=== PATIENT | male | born 1960 | race Caucasian/White ===

== ENCOUNTER → 2017-03-25 | Outpatient (CLI) | payer BC ==
--- NOTE | 2017-03-25 10:18 | DIAGNOSTIC IMAGING REPORT ---
RIGHT ANKLE MIN 3 VIEWS ROUTINE CLINICAL HISTORY: M25.50, arthralgia. COMPARISON: None. DISCUSSION: No acute fractures are visualized. There is evidence for an old internally fixated distal fibular fracture. There are corticated ossicles adjacent to both the medial and lateral malleolar. These are felt to be old and related to old trauma. There is Achilles insertional spurring. No acute fractures are visualized. IMPRESSION: Old posttraumatic and postsurgical change. No acute fractures. Electronically signed by: Douglas Kirk M.D. 03/25/2017 10:16 AM Dictated Date/Time: 03/25/2017 10:15 AM
--- NOTE | 2017-03-25 10:19 | DIAGNOSTIC IMAGING REPORT ---
LEFT HAND MIN 3 VIEWS ROUTINE CLINICAL HISTORY: M25.50 pain COMPARISON: None. DISCUSSION: The bones and joint spaces appear intact. There is no evidence of fracture, dislocation or bony disease. There is no evidence for soft tissue swelling. IMPRESSION: Negative study. Electronically signed by: Elvis Gunter M.D. 03/25/2017 10:18 AM Dictated Date/Time: 03/25/2017 10:17 AM
--- NOTE | 2017-03-25 10:20 | DIAGNOSTIC IMAGING REPORT ---
KNEE 3 VIEWS CLINICAL HISTORY: M25.50 pain COMPARISON: None. DISCUSSION: Mild degenerative changes of the articular surfaces of the medial and patellofemoral joint compartments. Minimal reactive osteophytic change from the tibial spines. No abnormal soft tissue calcifications. There is no evidence for soft tissue swelling. IMPRESSION: Mild degenerative changes of the articular surface of the medial and patellofemoral joint compartments. Electronically signed by: Elvis Gunter M.D. 03/25/2017 10:19 AM Dictated Date/Time: 03/25/2017 10:18 AM
--- NOTE | 2017-03-25 10:21 | DIAGNOSTIC IMAGING REPORT ---
KNEE 3 VIEWS CLINICAL HISTORY: M25.50 RIGHT KNEE PAIN COMPARISON: 03/25/2017 DISCUSSION: No acute fractures are visualized. There is mild spurring at the level the lateral tibial spine. There is minor dorsal patellar spurring. There are no erosive or destructive changes. IMPRESSION: Mild degenerative change. No acute fractures. No evidence of erosive disease. Electronically signed by: Douglas Kirk M.D. 03/25/2017 10:20 AM Dictated Date/Time: 03/25/2017 10:19 AM
--- NOTE | 2017-03-25 10:37 | DIAGNOSTIC IMAGING REPORT ---
RIGHT HAND MIN 3 VIEWS ROUTINE CLINICAL HISTORY: Right hand pain COMPARISON: None. DISCUSSION: The bony mineralization appears normal. No fractures or dislocations are visualized. There are no erosive or destructive changes. There are minimal osteoarthritic changes. IMPRESSION: Minor osteoarthritis. No acute fractures identified. Electronically signed by: Douglas Kirk M.D. 03/25/2017 10:36 AM Dictated Date/Time: 03/25/2017 10:23 AM
[2017-03-25 10:40] LABS: BASO % 0.4 %; BASO ABS # 0.02 K/uL (0-0.2); COMPLETE YES; EOS % 2.9 %; HEMATOCRIT 40.6 % (42-52); IG% 0.2 %; LYMPH % 21.6 %; MEAN CELL VOLUME 88.5 fL (80-100); MEAN CORPUSCULAR HEMOGLOBIN 29.6 pg (25-34); MEAN CORPUSCULAR HGB CONC 33.5 g/dl (32-36); MEAN PLATELET VOLUME 11.1 fL (7.4-10.4); MONO % 6.9 %; PLATELET COUNT 199 K/uL (130-400); RED BLOOD COUNT 4.59 M/uL (4.7-6.1)
[2017-03-25 10:48] LABS: URINE APPEARANCE CLEAR (CLEAR); URINE BILIRUBIN NEG (NEG); URINE COLOR YELLOW; URINE EPITHELIAL CELL AUTO >30 /lpf (0-5); URINE NITRITE NEG (NEG); UROBILINOGEN NEG (NEG)
[2017-03-25 10:49] LABS: MANUAL MICROSCOPIC REQUIRED? NO; REVIEW REQ? NO
[2017-03-25 10:55] LABS: BLOOD UREA NITROGEN 23 mg/dl (7-18); BUN/CREATININE RATIO 24.5 (10-20); CALCIUM 8.6 mg/dl (8.5-10.1); CARBON DIOXIDE 28 mmol/L (21-32); CHLORIDE 106 mmol/L (98-107); CREATININE 0.96 mg/dl (0.60-1.40); GLUCOSE 89 mg/dl (70-99); POTASSIUM 4.4 mmol/L (3.5-5.1); SODIUM 139 mmol/L (136-145)
[2017-03-25 10:56] LABS: RHEUMATOID FACTOR < 10.0 U/mL (0-15)
[2017-03-30 05:19] LABS: ANTI-CENTROMERE AB <1.0 NEG AI (<1.0 NEG); ANTI-SS-A <1.0 NEG AI (<1.0 NEG); ANTI-SS-B <1.0 NEG AI (<1.0 NEG); DNA ds CRITHIDIA NEGATIVE (NEGATIVE); Sm Antibody <1.0 NEG AI (<1.0 NEG)
== END | disposition home or self-care (01) ==
LOC: C.RAD1850 09:22
PROVIDERS: ATTEND Internal Medicine Rheumatology
DX: M25.50 Pain in unspecified joint (principal); L93.2 Other local lupus erythematosus

== ENCOUNTER → 2017-04-05 | Outpatient (CLI) | payer BC ==
--- NOTE | 2017-04-05 12:11 | DIAGNOSTIC IMAGING REPORT ---
BONE SCAN WHOLE BODY CLINICAL HISTORY: M25.50 Arthralgia of multiple sites COMPARISON STUDY: Conventional x-ray of the knees hand and right ankle dated 03/25/2017 FINDINGS: The patient was injected with 27.1 mCi of technetium 99m MDP. Three-hour delayed whole body images were acquired. The bladder is distended obscuring portions of the pelvis. There is minimal increased activity at the level the proximal left fibula. This likely is secondary to mild degenerative change of the proximal synchondrosis. Skeletal uptake is otherwise normal for age. IMPRESSION: Minimal increased activity at the level the proximal left fibula. Skeletal uptake is otherwise essentially normal for age Electronically signed by: Douglas Kirk M.D. 04/05/2017 12:09 PM Dictated Date/Time: 04/05/2017 12:07 PM
== END | disposition home or self-care (01) ==
LOC: C.NUCL 07:47
PROVIDERS: ATTEND Internal Medicine Rheumatology
DX: M25.50 Pain in unspecified joint (principal)

== ENCOUNTER → 2017-09-19 | Outpatient (CLI) | payer BC ==
[2017-09-19 17:32] LABS: BASO % 0.3 %; BASO ABS # 0.02 K/uL (0-0.2); COMPLETE YES; EOS % 1.6 %; HEMATOCRIT 40.1 % (42-52); IG% 0.3 %; LYMPH % 17.2 %; LYMPH ABS # 1.07 K/uL (1.2-3.4); MEAN CELL VOLUME 89.3 fL (80-100); MEAN CORPUSCULAR HEMOGLOBIN 30.1 pg (25-34); MEAN CORPUSCULAR HGB CONC 33.7 g/dl (32-36); MEAN PLATELET VOLUME 11.1 fL (7.4-10.4); MONO % 7.9 %; NEUT % 72.7 %; PLATELET COUNT 208 K/uL (130-400); RED BLOOD COUNT 4.49 M/uL (4.7-6.1); WHITE BLOOD COUNT 6.22 K/uL (4.8-10.8)
[2017-09-19 18:11] LABS: ALT/SGPT 39 U/L (12-78); BLOOD UREA NITROGEN 29 mg/dl (7-18); BUN/CREATININE RATIO 25.8 (10-20); CALCIUM 8.7 mg/dl (8.5-10.1); CARBON DIOXIDE 30 mmol/L (21-32); CHLORIDE 103 mmol/L (98-107); CREATININE 1.11 mg/dl (0.60-1.40); GLUCOSE 85 mg/dl (70-99); POTASSIUM 3.9 mmol/L (3.5-5.1); SODIUM 139 mmol/L (136-145)
[2017-09-19 18:13] LABS: ALB/GLOB RATIO 1.2 (0.9-2); ALKALINE PHOSPHATASE 54 U/L (45-117); AST/SGOT 25 U/L (15-37)
== END | disposition home or self-care (01) ==
LOC: C.LABBFT 13:57
PROVIDERS: ATTEND Physician Assistant
DX: L93.2 Other local lupus erythematosus (principal)

== ENCOUNTER 2022-06-18 06:21 | Observation (INO) ==
--- NOTE | 2022-02-21 11:16 | PAT Medication Instructions ---
Medication Instructions Date of Service February 21, 2022 Home Medications Medication Instructions Recorded fluocinonide 0.05 % topical 1 applic TOP BID #60 ml 09/20/21 solution propranolol 60 mg capsule,24 See Rx Instructions .ROUTE 11/17/21 hr,extended release .COMPLEX #30 cap hydroxychloroquine 200 mg tablet 400 mg PO DAILY #60 tab 11/30/21 (Plaquenil) finasteride 5 mg tablet (Proscar) 5 mg PO QAM tamsulosin 0.4 mg capsule (Flomax) 0.4 mg PO QAM acetaminophen 500 mg tablet 500 mg PO QID PRN fluocinonide 0.05 % topical solution 1 applic TOP BID propranolol 60 mg capsule,24 hr,extended release See Rx Instructions .ROUTE .COMPLEX hydroxychloroquine 200 mg tablet (Plaquenil) 400 mg PO DAILY mometasone 0.1 % topical cream 1 applic TOPICAL DAILY PRN ASK your prescriber and surgeon hydroxychloroquine 200 mg tablet (Plaquenil) 400 mg PO DAILY STOP taking 24 hours before surgery fluocinonide 0.05 % topical solution 1 applic TOP BID mometasone 0.1 % topical cream 1 applic TOPICAL DAILY PRN Take morning of surgery With a small sip of water, OTHERWISE NOTHING TO EAT OR DRINK AFTER MIDNIGHT: finasteride 5 mg tablet (Proscar) 5 mg PO QAM tamsulosin 0.4 mg capsule (Flomax) 0.4 mg PO QAM acetaminophen 500 mg tablet 500 mg PO QID PRN (okay to take up to 4 hours prior to surgery if needed) propranolol 60 mg capsule,24 hr,extended release See Rx Instructions .ROUTE .COMPLEX Take evening before surgery acetaminophen 500 mg tablet 500 mg PO QID PRN (if needed) Other Notes If you have any questions please call us at [phone] or [phone] or [phone] or [phone]
--- NOTE | 2022-02-22 15:03 | Anesthesiology Consultation ---
Date of Service February 22, 2022 Assessment & Plan (1) Encounter for pre-operative examination: Chart Review Chart Review: Acceptable Risk for Surgery (pending cardio preop evaluation 03/09 and preop Covid testing results ) and Patient seen in Pre Admission Testing -Will refer patient to cardio for chest pressure x 1 month - scheduled 03/09/22 with [facility] at 1045am. Pt aware Per PAT appt on 02/21/22, patient denies any recent travel or large group activities. No known Covid positive exposures or Covid related symptoms. No known Covid infection in the past 90 days. Pt is vaccinated for Covid. Preop Covid testing scheduled 04/04/22= will await results. Educated on importance of self quarantining, social distancing and wearing mask in public for the patient one week prior to surgery and after Covid testing done Teaching & Discussion Pre-Anesthesia Teaching/Discussion Notes: Instructed NPO after midnight before surgery,except medications with 15 cc of water. Medication instructions provided according to the PAT guidelines. History Surgery Operation Date: 04/06/22 08:50 Proposed Procedures p Right Total Knee Arthroplasty - Ranjit Kasper MD Height/Weight Height: 5 ft 11 in Weight: 119.6 kg Allergies Allergy/AdvReac Type Severity Reaction Status Date / Time No Known Allergies Allergy Verified 02/21/22 09:52 Medications Home Medications Medication Instructions Recorded Confirmed Last Taken finasteride 5 mg tablet (Proscar) 5 mg PO QAM 08/09/18 02/21/22 03/29/21 08:30 tamsulosin 0.4 mg capsule (Flomax) 0.4 mg PO QAM 08/09/18 02/21/22 03/29/21 08:30 acetaminophen 500 mg tablet 500 mg PO QID PRN 03/09/21 02/21/22 03/29/21 12:00 fluocinonide 0.05 % topical 1 applic TOP BID #60 ml 09/20/21 02/21/22 Unknown solution propranolol 60 mg capsule,24 See Rx Instructions .ROUTE 11/17/21 02/21/22 Unknown hr,extended release .COMPLEX #30 cap hydroxychloroquine 200 mg tablet 400 mg PO DAILY #60 tab 11/30/21 02/21/22 Unknown (Plaquenil) mometasone 0.1 % topical cream 1 applic TOPICAL DAILY PRN 02/21/22 02/21/22 Unknown Past Medical History Medical History (Updated 02/23/22 @ 10:40 by Soraida Mohr PA-C) BPH (benign prostatic hyperplasia) Discoid lupus erythematosus Follows with [facility] - stable Last seen 11/30/21- stable- follow up in six months Essential tremor On propranolol, follows with [facility]- last seen 11/10/21 Noted to bilateral hands History of herniated intervertebral disc NO SURGERY REQUIRED Lumbar spine ( right side) Exercise / Class Metabolic Activity II 4-5 Yardwork/Stairs/Walk up hill (one flight of stairs- no chest pain or SOB ) Past Family History Family History Brother No problems noted. Brother Family history of diabetes mellitus Sister Family history of diabetes mellitus Other No family history of adverse response to anesthesia No pertinent family history in first degree relatives Past Surgical History Surgical History History of colonoscopy History of open reduction and internal fixation (ORIF) procedure RT ANKLE History of tonsillectomy History of tooth extraction S/P right knee arthroscopy Past Anesthesia History No Hx of Anesthesia Complications and No Family Hx of Anesthesia Complications History of PONV No Hx of PONV and No Hx of Motion Sickness Social History Smoking Status: Former smoker tobacco type: cigarettes Smoking cigarettes per day: 1 pack per month for about 3 years Do You Dip or Chew Tobacco: No Smoking End Date: Quit over one year ago Hx Alcohol Use: Yes Alcohol type: beer alcohol intake frequency: 0-2 drinks per day (2-3 beers/ day) Hx Substance Use: No substance use type: does not use Review of Systems - Chest pain- occurring the past month- located to central part of the chest. Pressure like. Unknown how long it lasts. No specific triggers. Possibly alleviated by rest. No nausea. No significant radiation. Does get SOB with chest pressure. - Within the past 6-12 months- increased [place] Patient denies shortness of breath at rest, reflux, cough, wheezing, palpitations. No hx of seizures, stroke, [place], apnea/snoring. No hx of blood clots or blood transfusions Physical Exam Vital Signs VITALS BP 123/75 P 60 TEMP 98.1 SP02 97% RESP 16 Constitutional no acute distress ENMT Mouth: no TMJ clicking Thyromental Distance: > or= 3.5 Finger Breadths (3.5) Mallampati Class: III Partial denture on the top and bottom Neck + limited neck extension (significant ) Respiratory normal respiratory effort; no respiratory distress Auscultation: lungs clear to auscultation bilaterally; no wheezes Cardiovascular Rate/Rhythm: regular rate and regular rhythm Heart Sounds: no murmur Vessels: no carotid bruit Musculoskeletal Spine: no pain with cervical ROM Extremities: extremities normal to inspection Psychiatric Orientation: alert Lab Results Anesthesia Preop Results Results Anesthesia Widget: WBC 5.94 K/uL (4.8-10.8) 02/22/22 Hgb 13.7 g/dL (14.0-18.0) L 02/22/22 Hct 40.3 % (42-52) L 02/22/22 Plt 241 K/uL (130-400) 02/22/22 Na 138 mmol/L (136-145) 02/22/22 K 4.3 mmol/L (3.5-5.1) 02/22/22 Cl 105 mmol/L (98-107) 02/22/22 CO2 27 mmol/L (21-32) 02/22/22 BUN 35 mg/dl (6-23) H 02/22/22 Creat 1.03 mg/dl (0.6-1.4) 02/22/22 Glucose Level 88 mg/dl (70-99(Fasting)) 02/22/22 PT 10.9 Seconds (9.0-12.0) 02/22/22 PTT 29.3 Seconds (21.0-31.0) 02/22/22 INR 1.0 (0.9-1.1) 02/22/22 Blood Type A Positive 02/22/22 Antibody Screen NEGATIVE 02/22/22 Testing Electrocardiogram Date: 02/22/22 Findings: + SB @ (56bpm ) Otherwise normal EKG per cardio Chest X-Ray Date: 02/22/22 Findings: + NAD
--- NOTE | 2022-06-12 14:11 | Anesthesiology Consultation ---
Date of Service June 12, 2022 Assessment & Plan Chart Review Chart Review: Acceptable Risk for Surgery and Patient NOT seen in Pre Admission Testing History Surgery Operation Date: 06/18/22 11:30 Proposed Procedures p Right Total Knee Arthroplasty - Ranjit Kasper MD Height/Weight Height: 6 ft Weight: 113.398 kg Allergies Allergy/AdvReac Type Severity Reaction Status Date / Time No Known Allergies Allergy Verified 05/14/22 07:44 Medications Home Medications Medication Instructions Recorded Confirmed Last Taken finasteride 5 mg tablet (Proscar) 5 mg PO QAM 08/09/18 05/14/22 03/29/21 08:30 tamsulosin 0.4 mg capsule (Flomax) 0.4 mg PO QAM 08/09/18 05/14/22 03/29/21 08:30 acetaminophen 500 mg tablet 500 mg PO QID PRN Pain 03/09/21 05/14/22 03/29/21 12:00 fluocinonide 0.05 % topical 1 applic topical BID #60 mL 09/20/21 05/14/22 Unknown solution propranolol 60 mg capsule,24 See Rx Instructions .Route 11/17/21 05/14/22 Unknown hr,extended release .COMPLEX #30 caps hydroxychloroquine 200 mg tablet 400 mg PO DAILY #60 tabs 11/30/21 05/14/22 Unknown (Plaquenil) mometasone 0.1 % topical cream 1 applic topical DAILY PRN 02/21/22 05/14/22 Unknown IRRITATION Past Medical History Medical History BPH (benign prostatic hyperplasia) Discoid lupus erythematosus Follows with [facility] - stable Last seen 11/30/21- stable- follow up in six months Essential tremor On propranolol, follows with [facility]- last seen 11/10/21 Noted to bilateral hands History of herniated intervertebral disc NO SURGERY REQUIRED Lumbar spine ( right side) Past Family History Family History Brother No problems noted. Brother Family history of diabetes mellitus Sister Family history of diabetes mellitus Other No family history of adverse response to anesthesia No pertinent family history in first degree relatives Past Surgical History Surgical History History of colonoscopy History of open reduction and internal fixation (ORIF) procedure RT ANKLE History of tonsillectomy History of tooth extraction S/P right knee arthroscopy Social History Smoking Status: Former smoker tobacco type: cigarettes Smoking cigarettes per day: 1 pack per month for about 3 years Do You Dip or Chew Tobacco: No Smoking End Date: 2.5 yrs ago Hx Alcohol Use: Yes Alcohol type: beer alcohol intake frequency: 0-2 drinks per day Hx Substance Use: No substance use type: does not use Testing Electrocardiogram Date: 02/22/22 Findings: + SB @ (56bpm ) Otherwise normal EKG per cardio Chest X-Ray Date: 02/22/22 Findings: + NAD
--- NOTE | 2022-06-16 13:25 | History and Physical Report ---
CHIEF COMPLAINT: Right lateral knee pain, discomfort, and swelling. HISTORY OF PRESENT ILLNESS: The patient is a 61-year-old gentleman referred by my partner, Dr. Bernardino lockhart, for surgical treatment of his right knee. He has got a several-year history of increasing right k nee pain and discomfort that has gradually gotten worse over time. He did have his right knee scoped and a partial meniscectomy done by Dr. Lamas on 03/30/2021. It really did not help much. He amilcar nues to have recurrent effusions, pain, discomfort, stiffness. He has tried an tooth cutter clutch brace withou t success. He now presents for surgical treatment. Of note, the patient does have a diagnosis of susi pus with slightly elevated inflammatory parameters. PAST MEDICAL HISTORY: Significant for: 1. Lupus. 2. Mild obesity. 3. Back pain. 4. Enlarged bladder. PAST SURGICAL HISTORY: Includes: 1. Ankle ORIF in 2014. 2. Colonoscopy. 3. Spine injection. 4. Knee arthroscopy done on 03/30/2021. ALLERGIES: None. CURRENT MEDICATIONS: Include: 1. Proscar. 2. Flomax. 3. Plaquenil for lupus. SOCIAL HISTORY: A 61-year-old male. He does not smoke. Two to three drinks per day. FAMILY HISTORY: Noncontributory. REVIEW OF SYSTEMS: Significant for this underlying diagnosis of lupus. He is on Plaquenil. No ches t pain or shortness of breath. No history of DVT or PE. No known bleeding problems. PHYSICAL EXAMINATION: GENERAL: Shows a pleasant middle-aged male. He looks to be in reasonably good health. HEENT: Benign. NECK: Supple. No lymphadenopathy. LUNGS: Clear to auscultation. HEART: Regular rate and rhythm. ABDOMEN: Soft, nontender, nondistended. EXTREMITIES: Grossly neurovascularly intact except as follows: Examination of the right knee reveal s the patient walks independently. He has got slight valgus alignment to his knee, which is increase d a little bit with weightbearing. Mild tenderness laterally. Small to moderate-sized knee effusion . Range of motion is 0-125. No instability. No pain with hip motion. X-RAYS: X-rays of the right knee from previously reviewed. It shows advanced lateral compartment DJ D. He has got complete loss of his lateral joint space on the 45-degree flexion films. Has got oste ophytes laterally. Some mild patellofemoral disease. ASSESSMENT: A 61-year-old gentleman about a year out from knee arthroscopy with persistent right kne e pain and discomfort consistent with advanced lateral compartment arthritis. He has failed conserva tive treatment and would like to have his knee replaced. PLAN: We will take him to the operating room and do a right total knee replacement. The risks and b enefits of this procedure were explained to the patient and include, but not limited to DVT, PE, deat h, infection, neurological injury, vascular injury, bleeding problem, pain, limited range of motion, stiffness, failure to relieve his symptoms, incomplete relief of symptoms, need for further surgery i n the future, etc. The patient understands and desires to proceed. Informed consent was obtained. The patient did have a lab workup. He had a stress test of his heart, which was negative recently. His inflammatory parameters are slightly elevated consistent with his lupus. We will proceed with kn ee replacement surgery. He is planning to be discharged to home using [facility] program. Job ID: [id number]
[~2022-06-18 06:21] MED LIST: ACETAMINOPHEN 500 MG TAB PO SCH; BUPIVACAINE LIPOSOME/PF 266 MG, BUPIVACAINE/EPINEPHRINE 50 ML, SODIUM CHLORIDE 0.9% 30 ... INFIL SCH; CeleBREX 200 MG CAP PO SCH; FAMOTIDINE 20 MG TAB PO SCH; LR 500ML BOLUS, THEN 15ML/HR IV SCH; LR 60ML/HR IV SCH; METOCLOPRAMIDE HCL 10 MG TABLET PO SCH; Scopolamine 1 MG TDSY TD SCH; TRANEXAMIC ACID 1,000 MG **IV Intra-op IV SCH; ceFAZolin 2000MG 2,000 MG/15 ML SYR IV SCH
[2022-06-18] MEDS ORDERED: BUPIVACAINE 0.5 % 5 MG/1 ML PF 10ML VIAL ONE (06:25)
[2022-06-18] MEDS ORDERED: ROPIVACAINE 0.5% 5 MG/ML 30 ML VIAL ONE (06:25)
--- NOTE | 2022-06-18 06:56 | History & Physical Bridge Note ---
Date of Service June 18, 2022 History & Physical Bridge Note I have examined the patient, reviewed the History & Physical and in the interval since the performance of the History & Physical I have noted the following changes of clinical significance: no changes noted
[2022-06-18] MEDS ORDERED: MIDAZOLAM HCL 1 MG/ML 2ML VIAL ONE ×2 (07:20→08:23)
[2022-06-18] MEDS ORDERED: fentaNYL citrate 100 MCG/2 ML VIAL ONE (07:20)
[2022-06-18] MEDS ORDERED: PROPOFOL IV EMULSION 10 MG/ML 20 ML VIAL IV ONE ×2 (07:20→09:53)
[2022-06-18] MEDS ORDERED: LIDOCAINE 2% MPF LOCAL 5 ML VIAL INFIL ONE (07:20)
[2022-06-18] MEDS ORDERED: HYDROmorphone INJ 2 MG/ML SYR/VIAL IV PRN (08:20)
[2022-06-18] MEDS ORDERED: ePHEDrine sulfate 50 MG/ML AMP IV PRN (08:20)
[2022-06-18] MEDS ORDERED: fentaNYL citrate 100 MCG/2 ML VIAL IV PRN (08:20)
[2022-06-18] MEDS ORDERED: ATROPINE SULFATE 0.1 MG/ML 10ML SYR IV PRN (08:20)
[2022-06-18] MEDS ORDERED: BUPIVACAINE LIPOSOME 1.3% 266 MG/20 ML VIAL ONE (08:44)
[2022-06-18] MEDS ORDERED: BUPIVACAINE/EPINEPHRINE 0.25% 1:200,000 30 ML VIAL ONE (08:44)
[2022-06-18] MEDS ORDERED: SODIUM CHLORIDE 0.9% PF 50 ML VIAL ONE (08:44)
[2022-06-18] MEDS ORDERED: DEXAMETHASONE SOD INJ 4 MG/ML VIAL ONE (08:59)
[2022-06-18] MEDS ORDERED: ONDANSETRON INJ 2 MG/ML 2 ML VIAL ONE (08:59)
[2022-06-18] MEDS ORDERED: VANCOMYCIN HCL 1000MG/20ML VIAL ONE (09:43)
--- NOTE | 2022-06-18 10:52 | Operative Report ---
PG Post Operative Report Pre & Post Diagnosis Operation Date: 06/18/22 08:40 Pre-Op Diagnosis: Right Knee Degenerative Joint Disease Post-Op Diagnosis: Right Knee Degenerative Joint Disease I identified the patient and participated in the time-out.: Yes Procedure Operation Date: 06/18/22 08:40 Actual Procedures p Right Total Knee Arthroplasty(Right) - Ranjit Kasper MD Surgeon Ranjit Kasper MD Rubber Tubing Backer Larry Carson PA-C Estimated Blood Loss 50 Findings Consistent with Post-Op Diagnosis Operative findings were pretty extensive grade 4 [id number] disease in all 3 compartments. But for the most severe laterally about the level of full- thickness cartilage loss medially and in the patellofemoral joint. Slight valgus alignment to his knee. Moderate-sized joint effusion. Fluids 1100 cc. Specimens Right knee sent for pathology Drains None Anesthesia Type Spinal MAC Complications none Disposition Accompanied Patient To Recovery: No Indications Patient is 61-year-old gentleman has had a several year history of increasing right knee pain discomfort. He had did undergo knee arthroscopy a little over a year ago with minimal relief. Is been treated conservatively in the past years with recurrent aspirations and injections which became less successful over time. X-rays show progressive knee arthritis. He elected proceed with surgical treatment. Description of Procedure Operative implants consist of: 1 Biomet Vanguard size 70 right posterior stabilized femoral component. 2. Biomet size 75 tibial tray. 3. 10 mm posterior stabilized polyethylene insert. 4. 31 x 8 all Paller patella. The patient was taken the operating, identified, placed on the operating table supine position but all contact areas were appropriately padded. IV antibiotics tried by anesthesia team. Spinal anesthetic and been implemented holding area. Fish catheter was placed in sterile fashion. Right Tetrick was then placed in the right lower extremities and prepped and draped in usual sterile fashion. The right leg was elevated exsanguinated with use of an Esmarch in terms playset 300 mmHg. An anterior approach of the right knee was then performed to longitudinal incision centered over the patella. Sharp dissection was carried through subcutaneous tissue down the extensor mechanism. A medial parapatellar arthrotomy incision was made. Some subperiosteal dissection was carried out medially. The fat pad was resected from Neath patella tendon. Lateral patellofemoral ligament was released. Patella subluxated laterally and the knee was flexed. The osteophytes taken off distal femur. ACL and PCL were then released from distal femur the tibia subluxated anteriorly. The external tibial alignment jig was then placed in the interface the tibia and adjusted 12 mm medially. Proximal tibial cut was made remove about 3 to 4 mm of bone from the proximal tibia medial side. The tibia was then sized to a size 75. Attention drawn the femur. The distal femur stem with a sharp drill. Intramedullary canal was suction. A right 5 degree valgus cutting guide was placed. The distal femoral cutting block was pinned in place. Distal femoral cut was made to take an additional 5 mm of bone off distal femur. The femur was then sized to a size 70. Sized almost exactly to a 70. The AP cutting block was pinned parallel to the epicondylar axis which was 4 degrees of external rotation. The anterior cut, anterior chamfer, posterior cut, posterior chamfer cuts were made. The box cutting guide was placed in just slight lateral and the box cut was made. The knee was flexed. The remnants of the medial and lateral menisci were excised. The osteophytes taken off the posterior aspect the femur. A trial femoral component was placed for the tibial tray was pinned in maximum external rotation and the drill and stem punch were used to create defect in proximal tibia for the tibial tray. Knee was then trialed and the 10 mm insert fit most appropriately. Attention drawn the patella. Of the patella was cleaned of all soft tissues. Patella thickness measured 23 mm in thickness and was cut down to 15. Was sized to a size 31 patella. The lug holes were drilled for a 31 patella. The lateral osteophyte was removed. Patella button was placed. Knee was taken through range of motion and the patella tracked nicely with no thumbs test. Attention drawn to placing permanent components. Nupathe all trial components were removed. Bone plug was placed in the distal femur limit blood loss. A double batch of Palacos G cement was mixed. I did add an additional gram of vancomycin due to his history of psoriasis and immunocompromise status. A Biomet Vanguard size 70 right posterior stabilized femoral component, size 75 tibial tray, 10 mm posterior stabilized polyethylene insert, and a 31 x 8 all Paller patella then cemented in place. Knee was brought out into full extension total cement hardened. Final cement check was then performed. The pericapsular tissues were injected with total 100 cc of combination of 20 cc of Exparel, 30 cc normal saline, 50 cc of quarter percent Marcaine with epinephrine. Patient did receive 1 g tranexamic acid. The tourniquet was let down for final turn time 64 minutes. Hemostasis assured use electrocautery. Extensor mechanism closed with combination 1 PDS suture #1 Vicryl suture in [id number] fashion. Extensor mechanism checked found to be intact the subcutaneous tissue then closed with 2 Dexon suture buried knot fashion skin was closed skin america. Leg was then cleaned and dried a sterile dressing was Xeroform, 4 fours, sterile cast padding, Anselmo bandage were applied. The patient then transferred to the recovery room in stable condition. Patient tolerated procedure well and there were no complications. Larry Carson, my physician producer assistant, was present for the entire procedure. His assistance was essential and required for appropriate patient positioning, prepping and draping, surgical exposure, performing the technical details of the operation, placement the implants, closure of the wound, and placement of the sterile bandage. I attest to the content of the Intraoperative Record and any orders documented therein. Any exceptions are noted below.
--- NOTE | 2022-06-18 11:10 | XRay Report ---
XR knee RT 1 or 2V routine HISTORY: 61 years-old Male Surgical Post Op right knee total joint arthroplasty COMPARISON: Knee radiographs 07/17/2021 TECHNIQUE: 2 views of the right knee FINDINGS: Total joint arthroplasty with patellar resurfacing. Anterior midline skin [place] are noted along wit h expected postoperative soft tissue swelling with deep tissue air. No acute fracture, alignment or o paque foreign body identified. IMPRESSION: Total joint arthroplasty with expected postoperative changes. ACT 112: Negative or not required by law. The above report was generated using voice recognition software. It may contain grammatical, syntax o r spelling errors. Electronically signed by: Nabil Rosas M.D. 06/18/2022 11:09 AM
--- NOTE | 2022-06-18 11:16 | Anesthesiology Progress Note ---
Date of Service June 18, 2022 Anesthesia Post Procedure Vital Signs Vital Signs: Temp Pulse Resp BP BP Pulse Ox O2 Del Method 06/18/22 11:05 62 15 121/81 96 Room Air 06/18/22 10:55 55 L 13 123/81 96 Room Air 06/18/22 10:45 36.8 C 58 L 15 132/87 100 Oxymask 06/18/22 07:01 36.9 C 62 18 132/74 96 Room Air O2 Flow Rate 06/18/22 11:05 06/18/22 10:55 06/18/22 10:45 5 06/18/22 07:01 Pain Intensity Right Knee: Pain Intensity: 5 Transfer of Care Handoff Completed per policy Notes Mental Status: alert / awake / arousable and participated in evaluation Nausea / Vomiting: adequately controlled Pain: adequately controlled Airway Patency, RR, SpO2: stable & adequate BP & HR: stable & adequate Hydration State: stable & adequate Neuraxial Anesthesia: was administered and sensory block is resolving Anesthetic Complications: no major complications apparent and Pt Satisfied with anesthetic care
[2022-06-18] MEDS ORDERED: diphenhydrAMINE Capsule 25 MG CAP PO PRN (11:41)
[2022-06-18] MEDS ORDERED: HYDROmorphone INJ 0.5 MG/0.5 ML SYR IV PRN (11:41)
[2022-06-18] MEDS ORDERED: MOMETASONE FUROATE 0.1% CR 15 GM TUBE EXT PRN (11:41)
[2022-06-18] MEDS ORDERED: NALOXONE HCL 0.4 MG/1 ML VIAL/CARP IV PRN (11:41)
[2022-06-18] MEDS ORDERED: METOCLOPRAMIDE HCL INJ 5 MG/ML 2 ML VIAL IV PRN (11:41)
[2022-06-18] MEDS ORDERED: ALUMINUM/MAGNESIUM SUSP 30 ML UDC PO PRN (11:41)
[2022-06-18] MEDS ORDERED: ONDANSETRON INJ 2 MG/ML 2 ML VIAL IV PRN (11:41)
[2022-06-18] MEDS ORDERED: MAGNESIUM HYDROXIDE SUSP 30 ML UDC PO PRN (11:41)
[2022-06-18] MEDS ORDERED: bisacodyL 10 MG SUPP PR PRN (11:41)
[2022-06-18] MEDS ORDERED: PHENYLEPHRINE HCL 10 MG/ML VIAL ONE (12:26)
[2022-06-18] MEDS ORDERED: ePHEDrine sulfate 50 MG/ML AMP ONE (12:26)
[2022-06-18] MEDS: KETOROLAC 30 MG/ML VIAL IV SCH ×2 (13:07→17:48)
[2022-06-18] MEDS: PROPRANOLOL HCL 60 MG LA CAP PO SCH (13:07)
[2022-06-18] MEDS: SODIUM CHLORIDE 0.9% 1000ML 1,000 ML IV SCH ×2 (13:07→22:50)
[2022-06-18] MEDS: ACETAMINOPHEN 500 MG TAB PO SCH ×2 (13:08→21:24)
[2022-06-18] MEDS: Scopolamine CHECK PATCH PLACEMENT SCH (15:45)
[2022-06-18] MEDS ORDERED: TRANEXAMIC ACID / 0.7% NACL 1,000 MG/100 ML BAG IV SCH (16:45)
[2022-06-18] MEDS: ASCORBIC ACID 500 MG TAB PO SCH (16:48)
[2022-06-18] MEDS: ceFAZolin 2000MG 2,000 MG/15 ML SYR IV SCH (16:48)
[2022-06-18] MEDS: oxyCODONE HCL IR 5 MG TAB (IMMEDIATE RELEASE) PO PRN ×2 (16:50→22:52)
--- NOTE | 2022-06-18 17:14 | Progress Notes ---
DATE OF SERVICE: 06/18/2022 SUBJECTIVE: A 61-year-old gentleman, postop from a right knee replacement. He is doing pretty well. His pain was starting to climb; he got some pain medicine and is doing better. No chest pain or sh ortness of breath. Not feeling dizzy or lightheaded. OBJECTIVE: VITAL SIGNS: Temperature is 36.5. Vital signs are stable. PHYSICAL EXAMINATION: GENERAL: Shows a pleasant middle-aged male. He is sitting up in bed, looks pretty comfortable. LUNGS: Clear to auscultation. HEART: Regular rate and rhythm. ABDOMEN: Soft, nontender, nondistended. EXTREMITIES: Grossly neurovascularly intact except as follows: Examination of the right leg reveals the leg to be well aligned. Dressing is clean, dry and intact. He is neurologically intact. He ca n dorsiflex and plantarflex his foot appropriately. X-RAYS: X-rays of the knee from recovery room are reviewed. It shows a cemented posterior stabilize d total knee arthroplasty. Components looked to be in good position. No signs of problems. ASSESSMENT: A 61-year-old gentleman with a history of psoriasis, now postoperative from a right knee replacement, doing well. Pain is controlled. He is neurologically intact. PLAN: 1. DVT prophylaxis includes thigh-high TEDs, SCDs, and aspirin twice a day. 2. PT, OT, weightbear as tolerated. Right total knee protocol. 3. Pain control, doing okay with current pain regimen. 4. IV antibiotics x24 hours. 5. Disposition: Plan to discharge to home with some home health once adequately recovered and getti ng around safely. Job ID: [id number]
[2022-06-18] MEDS: TAPENTADOL HCL ER 50 MG TABCR PO SCH (20:07)
[2022-06-18] MEDS: DOCUSATE SODIUM/SENNA 50/8.6MG TAB PO SCH (20:08)
[2022-06-18] MEDS: DOCUSATE SODIUM 100 MG CAP PO SCH (20:09)
[2022-06-18] MEDS: ASPIRIN 81 MG ECTAB PO SCH (20:09)
[2022-06-18] MEDS ORDERED: SENNA 8.6 MG TAB PO SCH (21:00)
[2022-06-19] MEDS: Scopolamine CHECK PATCH PLACEMENT SCH ×3 (01:04→15:43)
[2022-06-19] MEDS: KETOROLAC 30 MG/ML VIAL IV SCH ×3 (01:04→11:36)
[2022-06-19] MEDS: ceFAZolin 2000MG 2,000 MG/15 ML SYR IV SCH (01:05)
[2022-06-19] MEDS: ACETAMINOPHEN 500 MG TAB PO SCH ×2 (06:14→13:36)
[2022-06-19 06:27] LABS: Hematocrit (blood only) 35.7 % (40.1-51.0); Hemoglobin 11.8 g/dl (14.0-18.0); Mean Corpuscular Hemoglobin 29.7 pg (25.0-34.0); Mean Corpuscular Hgb Conc 33.1 g/dL (32.0-36.0); Mean Corpuscular Volume 89.9 fL (80.0-100.0); Mean Platelet Volume 10.8 fL (9.4-12.4); Platelet Count 206 K/uL (130-400); RDW Coefficient of Variation 12.7 % (11.5-14.5); RDW Standard Deviation 41.6 fL (36.4-46.3); Red Blood Count 3.97 M/uL (4.63-6.08); White Blood Count 10.34 K/ul (4.8-10.8)
[2022-06-19 06:57] LABS: BUN Creatinine Ratio 21.4 (10-20); Calcium 8.5 mg/dl (8.5-10.1); Creatinine Clr Calc Pharmacy 100.5 ml/min; Est GFR (African American) 90.4 ml/min; Potassium 4.1 mmol/L (3.5-5.1)
[2022-06-19] MEDS ORDERED: dexAMETHasone 10 MG in SYRINGE 0 ML IV SCH (08:00)
[2022-06-19] MEDS: ASCORBIC ACID 500 MG TAB PO SCH (08:32)
[2022-06-19] MEDS: DOCUSATE SODIUM 100 MG CAP PO SCH (08:34)
[2022-06-19] MEDS: ASPIRIN 81 MG ECTAB PO SCH (08:34)
[2022-06-19] MEDS: DOCUSATE SODIUM/SENNA 50/8.6MG TAB PO SCH (08:34)
[2022-06-19] MEDS: PROPRANOLOL HCL 60 MG LA CAP PO SCH (08:37)
[2022-06-19] MEDS: TAPENTADOL HCL ER 50 MG TABCR PO SCH (08:39)
[2022-06-19] MEDS ORDERED: TAMSULOSIN HCL 0.4 MG CAP PO SCH ×2 (09:00)
[2022-06-19] MEDS ORDERED: MULTIVITAMIN TAB PO SCH (09:00)
[2022-06-19] MEDS ORDERED: HYDROXYCHLOROQUINE SULFATE 200 MG TAB PO SCH (09:00)
[2022-06-19] MEDS ORDERED: FINASTERIDE 5 MG TAB PO SCH (09:00)
[2022-06-19] MEDS: oxyCODONE HCL IR 5 MG TAB (IMMEDIATE RELEASE) PO PRN ×2 (09:33→15:47)
--- NOTE | 2022-06-19 17:25 | Progress Notes ---
DATE OF SERVICE: 06/19/2022. SUBJECTIVE: A 61-year-old gentleman, postoperative day 1 from right knee replaced. He is doing pret ty well. Therapy went okay. Moderate amount of pain. No chest pain or shortness of breath. Not fe eling dizzy or lightheaded. OBJECTIVE: VITAL SIGNS: Temperature 36.5. Vital signs are stable. GENERAL: Shows a pleasant middle-aged male. He is sitting up in bed and looks pretty comfortable. EXTREMITIES: Examination of the right leg reveals the dressing to be in place. There is a little bi t of bloody drainage to the anterior aspect of his dressing. He can do a straight leg raise. He can dorsiflex and plantarflex his foot appropriately. He is neurologically intact. LABORATORY DATA: Hemoglobin 11.8. Hematocrit 35.7. Electrolytes are stable. ASSESSMENT: A 61-year-old gentleman postoperative day 1 from right knee replacement, doing reasonabl y well. Pain is reasonably controlled. Therapy went okay. PLAN: 1. DVT prophylaxis includes thigh-high TEDs, SCDs, and aspirin twice a day. 2. PT, OT, weightbear as tolerated. Right total knee protocol. 3. Pain control, doing okay with current pain regimen. 4. Disposition: Plan to discharge to home with some home health later today. Job ID: [id number]
--- NOTE | 2022-06-22 15:45 | Discharge Summary ---
Date of Service June 22, 2022 Discharge Data Procedures Performed Operation Date: 06/18/22 08:40 Actual Procedures p Right Total Knee Arthroplasty(Right) - Ranjit Kasper MD Hospital Course (1) Status post total right knee replacement: This is a 61 year old patient admitted on 06/18/22 and underwent total knee arthroplasty. He tolerated the procedure well and there were no complications. Transferred to the PACU post op and later to the orthopedic floor for further care. He was given ancef for antibiotic prophylaxis. He was also given JONATHAN stockings, SCDs, and aspirin for DVT prophylaxis. Hemoglobin, hematocrit, and vital signs were monitored during his hospital stay and remained stable. Did not require any blood transfusions. There were no complications during his hospital stay. By post op day #1 the patient was tolerating a regular diet, pain was reasonably controlled with oral pain medicine, and he was participating in physical therapy. On post op day #1 the patient was discharged home and set up with home health care. He was given printed discharge instructions including prescriptions for extra strength tylenol, aspirin, toradol, zofran, senokot, flomax, and oxycodone. Continue physical therapy, weight bearing as tolerated. Continue JONATHAN stockings. Follow up approximately 2 weeks post op or sooner if there are problems or concerns. Coding Level of Care Code None Diagnoses Status post total right knee replacement Z96.651
== END 2022-06-19 15:52 | disposition home health service (06) ==
LOC: 3E 06:21 → ASU 06:21

== ENCOUNTER 2024-06-26 13:36 | Observation (INO) ==
[2024-06-26 16:27] LABS: Basophils # (auto) 0.04 K/uL (0.00-0.20); Basophils % (auto) 0.4 %; Eosinophils # (auto) 0.25 K/uL (0.00-0.50); Eosinophils % (auto) 2.4 %; Hematocrit (blood only) 41.5 % (42.0-52.0); Hemoglobin 13.5 g/dl (14.0-18.0); Immature Granulocytes # (auto) 0.04 K/uL (0.01-0.20); Immature Granulocytes % (auto) 0.4 %; Lymphocytes # (auto) 1.16 K/uL (1.20-3.40); Lymphocytes % (auto) 11.1 %; Mean Corpuscular Hemoglobin 28.4 pg (25.0-34.0); Mean Corpuscular Hgb Conc 32.5 g/dL (32.0-36.0); Mean Corpuscular Volume 87.4 fL (80.0-100.0); Mean Platelet Volume 10.4 fL (9.4-12.4); Monocytes # (auto) 1.07 K/uL (0.11-0.59); Monocytes % (auto) 10.2 %; Neutrophils % (auto) 75.5 %; Platelet Count 261 K/uL (130-400); RDW Coefficient of Variation 12.4 % (11.5-14.5); RDW Standard Deviation 39.8 fL (36.4-46.3); Red Blood Count 4.75 M/uL (4.70-6.10); White Blood Count 10.46 K/ul (4.8-10.8)
[2024-06-26 16:47] LABS: Albumin Globulin Ratio 1.1 (0.9-2); BUN Creatinine Ratio 17.2 (10-20); Bilirubin,Total 0.5 mg/dl (0.2-1.0); Calcium 9.3 mg/dl (8.6-10.3); Creatinine Clr Calc Pharmacy 104.8 ml/min; Globulin 3.7 gm/dl (2.5-4.0); Potassium 4.2 mmol/L (3.5-5.1); Total Protein 7.7 gm/dl (6.0-8.3)
--- NOTE | 2024-06-26 17:46 | Ultrasound Report ---
ULTRASOUND TESTES AND SCROTUM CLINICAL HISTORY: Scrotal swelling and erythema COMPARISON STUDY: No priors TECHNIQUE: Real-time, grayscale, and color Doppler sonography of the testes and scrotum is performed. Images are reviewed in the transverse and longitudinal planes. FINDINGS: The testes are normal in size and homogeneous in echotexture. The right testis measures 3.3 x 2.1 x 2 .6 cm and the left testis measures 3.7 x 2.9 x 2.8 cm. No intratesticular mass is seen. Testicular bl ood flow is normal and symmetric. Normal Doppler waveforms are identified in both testes. The epididymal heads are normal as imaged. The scrotal wall is markedly thickened and edematous and shows hyperemia on color imaging. There is a complex heterogeneous hypoechoic focus in the midline scrotum which measures 6.4 x 4.6 x 4.2 cm. Thi s show significant peripheral hyperemia and may represent phlegmonous change/developing abscess. There is a small right-sided hydrocele. A 5.7 cm complex loculated hydrocele is suggested on the left . No varicocele is identified. IMPRESSION: 1. Normal sonographic appearance of the testes. 2. There is marked thickening and edema of the scrotal wall with hyperemia on color imaging, typical in appearance for cellulitis. 3. There is a 6.4 cm complex hypoechoic structure/collection in the midline scrotum with correspondin g hyperemia. This merits and phlegmonous change/evolving abscess. Clinical correlation will be essent ial. 4. Bilateral hydroceles as above, left larger than right. ACT 112: Negative or not required by law. Electronically signed by: Riki Phillip M.D. 06/26/2024 5:44 PM
[2024-06-26] MEDS ORDERED: VANCOMYCIN CONSULT ACTIVE PRN (17:51)
--- NOTE | 2024-06-26 17:57 | Emergency Department Note ---
Impression & Plan Abscess of scrotum, Cellulitis of scrotum ED Provider Note HISTORY OF PRESENT ILLNESS: Patient is a 63-year-old male presenting with scrotal pain. Patient reports that about a week ago he had a catheter placed and was started on Keflex for a urinary tract infection. He states that for the last week he has had progressively worsening pain and swelling to his scrotum. He reports that today he has been unable to ambulate secondary to swelling and pain in the bilateral scrotum. He reports objective fevers and chills at home. He denies any abdominal pain. Denies any nausea, vomiting, chest pain or shortness of breath. ROS: as above PHYSICAL EXAM: Constitutional: Patient appears in no acute distress. HENT: Head: Normocephalic and atraumatic. Eyes: EOMI, PERRL Mouth/Throat: Mucous membranes moist. Neck: Trachea midline. Neck supple. Cardiovascular: RRR, No murmurs, rubs or gallops. Intact distal pulses. Pulmonary/Chest: No respiratory distress. Breath sounds clear and equal bilaterally. No wheezes or rales. Abdominal: Abdomen soft, no tenderness, rebound or guarding. : Chaperoned by nursing staff. Patient is noted to have a enlarged and diffusely erythematous scrotum that is tender to palpation. No palpable crepitus. Scrotum is warm to the touch and tender to palpation. Fish catheter in place. Fluctuance noted along the posterior midline of the scrotal. No obvious necrosis or open wounds. Musculoskeletal: No edema, tenderness or deformity noted. Skin: Warm and dry. No rash, erythema, pallor or cyanosis Psychiatric: Appropriate mood and affect for situation. Neurological: Alert and keenly responsive. CN II-XII grossly intact, moving all extremities equally and fully. MDM: - Vitals signs showed tachycardia - History obtained via patient. History as above. - Chronic conditions affecting care: BPH; HTN - Differential diagnoses include, but are not limited to: Scrotal cellulitis; testicular torsion; scrotal abscess; Benito's gangrene - Order placed for continuous cardiac monitoring. At this time, monitor showed rate of 63 bpm with normal sinus rhythm, per my interpretation. - External medical records reviewed. ER visit note dated 06/15/2024 was reviewed. Patient had presented for urinary retention after having a cystoscopy performed earlier that day. - Laboratory workup interpreted by myself showed normal WBC but elevated neutrophils; stable electrolytes; normal procalcitonin; normal lactate - UA negative for infection - US scrotum showed marked thickening and edema of the scrotal wall consistent with cellulitis. Also noted to have 6.4 cm complex hypoechoic structure in the midline scrotum concerning for phlegmonous change versus evolving abscess. - Blood cultures obtained - CT pelvis with IV contrast showed scrotal wall thickening and edema suggestive of cellulitis. Noted to have a 7.4 cm thick wall and peripheral enhancing multiloculated structure the midline scrotum consistent with an abscess. - Patient given 1L NS, 4 mg IV morphine and 4 mg IV zofran for pain management and hydration on initial assessment. He was given IV clindamycin, Zosyn and vancomycin for further antibiotic care. He was also given an additional 1 L normal saline for slight hypotension after medication administration - Discussed case with urologist program management professional, Dr. Tapia, at 1830. He reports that typically these can be trialed with IV antibiotics and supportive care. He states that if it does need surgical intervention, antibiotics typically work just as well and conceived the patient from having an incision. However, the patient decompensates, they can take the patient to the OR potentially do a bedside drainage. Urology will follow along as consult. - Discussion was had with case consultant about patient's case and need for admission - Hospitalist, Dr. Martinez, consulted for admission - [facility] ASSESSMENT AND PLAN: Diagnosis: scrotal cellulitis; scrotal abscess Plan: admit Past Med/Surg History Problem List (Updated 06/26/24 @ 20:34 by Claritza Izaguirre MD) Cellulitis of scrotum (Acute) Abscess of scrotum (Acute) Encounter for Fish catheter fitting and adjustment (Acute) Urinary retention (Acute) Cystitis (Acute) Hematuria (Acute) Discoid lupus erythematosus Follows with [facility] - stable Last seen 11/30/21- stable- follow up in six months Bilateral primary osteoarthritis of knee Internal derangement of knee Cyst of lateral meniscus of right knee Lateral meniscus tear History of arthroscopy of right knee Knee effusion Essential tremor Osteoarthritis of right knee Atypical chest pain Dyspnea Preoperative cardiovascular examination Status post total right knee replacement Arthralgia Medical History Essential tremor On propranolol, follows with [facility]- last seen 11/10/21 Noted to bilateral hands Encounter for pre-operative examination History of herniated intervertebral disc NO SURGERY REQUIRED Lumbar spine ( right side) BPH (benign prostatic hyperplasia) Surgical History History of colonoscopy History of open reduction and internal fixation (ORIF) procedure History of tonsillectomy History of tooth extraction S/P right knee arthroscopy Family History Brother No problems noted. Brother Family history of diabetes mellitus Sister Family history of diabetes mellitus Other No family history of adverse response to anesthesia No pertinent family history in first degree relatives Social History Smoking Status: Former smoker Cigarettes Per Day: 1 pack per month for about 3 years; Second Hand Exposure: No; Do You Dip or Chew Tobacco: No; Hx Alcohol Use: Yes Alcohol type: beer Hx Substance Use: No Preferred Language: Bahraini Communication Ability: Effective Ssas Developer Required: No Beliefs That Will Affect Care: None marital status: Current Living Situation: Spouse Feels Safe at Home: Yes Assistive Devices: Walker Allergies Allergies Allergy/AdvReac Type Severity Reaction Status Date / Time No Known Allergies Allergy Verified 06/26/24 18:14 Home Meds Home Medications Medication Instructions Recorded Confirmed finasteride 5 mg tablet (Proscar) 5 mg PO QAM 08/09/18 05/21/24 cephalexin 500 mg capsule 500 mg PO DIRECTED 06/26/24 06/26/24 cetirizine 10 mg tablet 10 mg PO DAILY PRN ALLERGIES 06/26/24 06/26/24 naproxen 500 mg tablet 500 mg PO BID PRN Pain (Scale 06/26/24 Score 1-3) Previous Rx's Medication Instructions Recorded tamsulosin 0.4 mg capsule (Flomax) 0.4 mg PO DAILY #7 caps 06/16/22 Aries Hose #1 ea 07/05/22 fluocinonide 0.05 % topical 1 applic topical BID #60 mL 07/15/22 solution desonide 0.05 % topical cream 1 applic topical BID #15 grams 08/01/23 hydroxychloroquine 200 mg tablet 400 mg (2 x 200 mg) PO DAILY #60 11/25/23 (Plaquenil) tabs propranolol 80 mg capsule,24 80 mg PO DAILY #30 caps 05/18/24 hr,extended release Results & Data (ED) Vital Signs Vital Signs - 24 hr 06/26/24 13:54 06/26/24 14:01 06/26/24 17:41 Temperature 36.4 C L 36.6 C Temperature Source Skin Temporal Artery Scan Pulse Rate 99 H 92 H Pulse Rate [Right Finger] 71 Pulse Rhythm Regular Pulse Strength Normal Respiratory Rate 20 16 20 Respiratory Effort / Characteristics Non-Labored Spontaneous Non-Labored Non-Labored Respiratory Depth Normal Normal Normal Respiratory Pattern Regular Blood Pressure 128/93 132/84 Blood Pressure [Right Arm] 121/85 Blood Pressure Mean 104 100 Blood Pressure Mean [Right Arm] 97 Blood Pressure Position Sitting Blood Pressure Position [Right Arm] Lying Pulse Oximetry 96 98 97 Oxygen Delivery Method Room Air Room Air Sepsis Recent Fever Within 48 Hours No No Sepsis New/Unexplained Change in Mental Status N/A N/A Sepsis Action Taken by Nursing No Action Required No Action Required 06/26/24 18:15 06/26/24 18:22 06/26/24 19:00 Temperature Temperature Source Pulse Rate 67 Pulse Rate [Right Finger] 69 63 Pulse Rhythm Pulse Strength Respiratory Rate 18 18 Respiratory Effort / Characteristics Non-Labored Spontaneous Non-Labored Spontaneous Respiratory Depth Normal Normal Respiratory Pattern Regular Regular Blood Pressure Blood Pressure [Right Arm] 107/70 95/65 L Blood Pressure Mean Blood Pressure Mean [Right Arm] 82 75 Blood Pressure Position Blood Pressure Position [Right Arm] Pulse Oximetry 95 96 Oxygen Delivery Method Room Air Room Air Sepsis Recent Fever Within 48 Hours Sepsis New/Unexplained Change in Mental Status Sepsis Action Taken by Nursing Laboratory Data 06/26/24 15:49 06/26/24 15:49 Lab Results 06/26/24 06/26/24 06/26/24 Range/Units 15:49 17:57 18:49 WBC 10.46 (4.8-10.8) K/ul RBC 4.75 (4.70-6.10) M/uL Hgb 13.5 L (14.0-18.0) g/dl Hct 41.5 L (42.0-52.0) % MCV 87.4 (80.0-100.0) fL MCH 28.4 (25.0-34.0) pg MCHC 32.5 (32.0-36.0) g/dL RDW Std Deviation 39.8 (36.4-46.3) fL RDW Coeff of Shannon 12.4 (11.5-14.5) % Plt Count 261 (130-400) K/uL MPV 10.4 (9.4-12.4) fL Immature Gran % (Auto) 0.4 % Neut % (Auto) 75.5 % Lymph % (Auto) 11.1 % [place] % (Auto) 10.2 % Eos % (Auto) 2.4 % Baso % (Auto) 0.4 % Neut # (Auto) 7.90 H (1.40-6.50) K/uL Lymph # (Auto) 1.16 L (1.20-3.40) K/uL [place]ett # (Auto) 1.07 H (0.11-0.59) K/uL Eos # (Auto) 0.25 (0.00-0.50) K/uL Baso # (Auto) 0.04 (0.00-0.20) K/uL Immature Gran # (Auto) 0.04 (0.01-0.20) K/uL Sodium 136 (136-145) mmol/L Potassium 4.2 (3.5-5.1) mmol/L Chloride 100 (98-107) mmol/L Carbon Dioxide 29 (21-32) mmol/L Anion Gap 7 (3-11) BUN 17 (6-23) mg/dl Creatinine 0.99 (0.6-1.4) mg/dl Est Cr Clr Drug Dosing 104.8 ml/min eGFR 85.60 BUN/Creatinine Ratio 17.2 (10-20) Glucose 82 (70-99(Fasting)) mg/dl Lactate 0.9 (0.4-2.0) mmol/L Calcium 9.3 (8.6-10.3) mg/dl Total Bilirubin 0.5 (0.2-1.0) mg/dl AST 21 (13-39) U/L ALT 30 (7-52) U/L Alkaline Phosphatase 75 (34-104) U/L Total Protein 7.7 (6.0-8.3) gm/dl Albumin 4.0 (3.4-5.0) gm/dl Globulin 3.7 (2.5-4.0) gm/dl Albumin/Globulin Ratio 1.1 (0.9-2) Procalcitonin 0.03 (0-0.5) ng/ml Urine Color Yellow Urine Appearance Clear (Clear) Urine pH 5.5 (4.5-7.5) Ur Specific [place] > 1.045 H (1.000-1.030) Urine Protein Negative (Negative) Urine Glucose (UA) Negative (Negative) Urine Ketones Negative (Negative) Urine Blood Negative (Negative) Urine Nitrite Negative (Negative) Urine Bilirubin Negative (Negative) Urine Urobilinogen Negative (Negative) Ur Leukocyte Esterase 1+ H (Negative) Urine WBC (Auto) 0-5 (0-5) /hpf Urine RBC (Auto) 0-2 (0-2) /hpf U Hyaline Cast (Auto) 0-2 (0-2) /lpf U Epithel Cells (Auto) 0-2 (0-2) /hpf Urine Bacteria (Auto) None Seen (None Seen) Administered Medications Vancomycin HCl 2,750 mg/ (Sodium Chloride) 555 mls @ 200 mls/hr IV NOW ONE Stop: 06/26/24 20:37 Last Admin: 06/26/24 19:29 Dose: 200 mls/hr Documented By: REJI Discontinued Medications Clindamycin Phosphate (Cleocin/D5w) 900 mg in 50 mls @ 100 mls/hr IV NOW ONE Stop: 06/26/24 18:20 Last Infusion: 06/26/24 18:49 Dose: Infused Documented By: Admin: 06/26/24 18:19 Dose: 100 mls/hr Documented By: REJI Piperacillin Sod/Tazobactam Sod (Zosyn) 4.5 gm in 100 mls @ 200 mls/hr IV NOW ONE; Protocol Stop: 06/26/24 18:20 Last Infusion: 06/26/24 19:22 Dose: Infused Documented By: Admin: 06/26/24 18:52 Dose: 200 mls/hr Documented By: REJI Sodium Chloride (Nss) 1,000 mls @ 999 mls/hr IV .Q1H1M ONE Stop: 06/26/24 18:57 Last Infusion: 06/26/24 19:18 Dose: Infused Documented By: Admin: 06/26/24 18:17 Dose: 999 mls/hr Documented By: REJI Sodium Chloride (Nss) 1,000 mls @ 999 mls/hr IV .Q1H1M ONE Stop: 06/26/24 20:26 Last Admin: 06/26/24 19:35 Dose: 999 mls/hr Documented By: REJI Ioversol (Optiray 320 100ml) 90 ml IV ONCE ONE Stop: 06/26/24 18:07 Last Admin: 06/26/24 18:06 Dose: 90 ml Documented By: SCAR Morphine Sulfate (Morphine Sulfate 4 Mg/Ml 1 Ml Carp\Vial) 4 mg IV NOW STA Stop: 06/26/24 17:58 Last Admin: 06/26/24 18:18 Dose: 4 mg Documented By: REJI Ondansetron HCl (Ondansetron Inj 2 Mg/Ml 2 Ml Vial) 4 mg IV NOW STA Stop: 06/26/24 17:58 Last Admin: 06/26/24 18:17 Dose: 4 mg Documented By: REJI Imaging Data Radiologist's Impression: Scrotum Ultrasound 06/26/24 15:52 ULTRASOUND TESTES AND SCROTUM CLINICAL HISTORY: Scrotal swelling and erythema COMPARISON STUDY: No priors TECHNIQUE: Real-time, grayscale, and color Doppler sonography of the testes and scrotum is performed. Images are reviewed in the transverse and longitudinal planes. FINDINGS: The testes are normal in size and homogeneous in echotexture. The right testis measures 3.3 x 2.1 x 2.6 cm and the left testis measures 3.7 x 2.9 x 2.8 cm. No intratesticular mass is seen. Testicular blood flow is normal and symmetric. Normal Doppler waveforms are identified in both testes. The epididymal heads are normal as imaged. The scrotal wall is markedly thickened and edematous and shows hyperemia on color imaging. There is a complex heterogeneous hypoechoic focus in the midline scrotum which measures 6.4 x 4.6 x 4.2 cm. This show significant peripheral hyperemia and may represent phlegmonous change/developing abscess. There is a small right-sided hydrocele. A 5.7 cm complex loculated hydrocele is suggested on the left. No varicocele is identified. IMPRESSION: 1. Normal sonographic appearance of the testes. 2. There is marked thickening and edema of the scrotal wall with hyperemia on color imaging, typical in appearance for cellulitis. 3. There is a 6.4 cm complex hypoechoic structure/collection in the midline scrotum with corresponding hyperemia. This merits and phlegmonous change/evolving abscess. Clinical correlation will be essential. 4. Bilateral hydroceles as above, left larger than right. ACT 112: Negative or not required by law. Electronically signed by: Rkii Phillip M.D. 06/26/2024 5:[address] 06/26/24 17:50 CT SCAN OF THE PELVIS WITH IV CONTRAST CLINICAL HISTORY: Scrotal pain and swelling. COMPARISON STUDY: Pelvic CT dated 03/07/2018. Scrotal ultrasound dated 06/26/2024. TECHNIQUE: Following the IV administration of 90 cc of Optiray 320, CT scan of the pelvis is performed from the pelvic inlet to the femoral shafts. Images are reviewed in the axial, sagittal, and coronal planes. IV contrast was administered without complication. A dose lowering technique was utilized adhering to the principles of ALARA. CT DOSE: 1744.09 mGy.cm FINDINGS: The bladder is decompressed around a Fish catheter. There is pericystic inflammation. The prostate gland is diminutive and heterogeneous. The seminal vesicles are atrophic. No free fluid is cc in the pelvis. Imaged portions of the small bowel and colon show no evidence of obstruction. A normal appendix is identified in the right lower quadrant. There is moderate diverticulosis of the imaged colon without CT evidence of acute diverticulitis. No pelvic sidewall or inguinal lymphadenopathy is identified. The scrotal wall is markedly thickened and edematous. There is a peripherally enhancing multiloculated appearing structure within the scrotal wall in the midline seen on axial image #565. This measures 4.9 x 7.4 x 5.2 cm and likely corresponds to the structure seen by ultrasound. There are bilateral hydroceles, left larger than right. The testes are normal as imaged by CT. No soft tissue gas is seen in the pelvis or perineum. The bony pelvis appears intact. No lytic or blastic lesion is seen. Degenerative sclerosis is noted in the sacroiliac joints, left greater than right. The regional musculature is normal and symmetric. IMPRESSION: 1. The bladder is decompressed around a Fish catheter and there is pericystic inflammation. Correlate with clinical findings and urinalysis. 2. The scrotal wall is markedly thickened and edematous suggesting cellulitis. 3. Again seen is a 7.4 cm thick-walled and peripherally enhancing multiloculated structure within the midline scrotal wall. This is indeterminant and may representing phlegmonous change/developing abscess. Follow-up to resolution is recommended to exclude the much less likely possibility of soft tissue lesion. 4. Bilateral hydroceles, left larger than right. 5. Sigmoid diverticulosis without CT evidence of acute diverticulitis. ACT 112: Negative or not required by law. Electronically signed by: Riki Phillip M.D. 06/26/2024 7:06 PM Discharge Plan Visit Data Chief Complaint: Groin Pain Stated Complaint: GROIN AREA FLARE UP ED Provider: Claritza Izaguirre Discharge Problem: Abscess of scrotum, Cellulitis of scrotum Forms Stand Alone Forms: [facility] Prescriptions Prescriptions: No Action tamsulosin [Flomax] 0.4 mg capsule 0.4 mg PO DAILY Qty: 7 0RF Rx Instructions: Begin night BEFORE surgery to prevent urinary retention fluocinonide 0.05 % solution 1 applic TOP BID Qty: 60 1RF Rx Instructions: Apply to areas of the scalp 1-2 times daily for up to 2 weeks as needed for flaring. hydroxychloroquine [Plaquenil] 200 mg tablet 400 mg PO DAILY Qty: 60 5RF Patient Comments: qam propranolol 80 mg capsule,extended release 24hr 80 mg PO DAILY Qty: 30 7RF (DME) Aries Almendarez [facility] See Rx Instructions .MEDSUPPLY Qty: 1 0RF Rx Instructions: As directed desonide 0.05 % cream 1 applic topical BID Qty: 15 1RF Rx Instructions: Apply to areas of the face twice daily x 2 weeks as needed for flaring. finasteride [Proscar] 5 mg Tablet 5 mg PO QAM cetirizine 10 mg tablet 10 mg PO DAILY PRN (Reason: ALLERGIES) cephalexin 500 mg capsule 500 mg PO DIRECTED Rx Instructions: TAKE 1 CAPSULE BY MOUTH EVERY 12 HOURS FOR 10 DAYS. FINISHED ON 06/26 naproxen 500 mg tablet 500 mg PO BID PRN (Reason: Pain (Scale Score 1-3)) Referrals Referrals: Dougie Luna, [facility] [Primary Care Provider] -
[2024-06-26] MEDS: OPTIRAY 320 100ml IV ONE (18:06)
[2024-06-26] MEDS: SODIUM CHLORIDE 0.9% 1,000 ML IV ONE ×3 (18:17→21:22)
[2024-06-26] MEDS: ONDANSETRON INJ 2 MG/ML 2 ML VIAL IV STA (18:17)
[2024-06-26] MEDS: MoRPHine SULFATE 4 MG/ML 1 ML CARP\\VIAL IV STA (18:18)
[2024-06-26] MEDS: CLINDAMYCIN/D5W 900 MG/50 ML BAG IV ONE (18:19)
[2024-06-26] MEDS: PIPERACILLIN/TAZOBACTAM 4.5 GM/100 ML BAG IV ONE (18:52)
--- NOTE | 2024-06-26 19:07 | CT Scan Report ---
CT SCAN OF THE PELVIS WITH IV CONTRAST CLINICAL HISTORY: Scrotal pain and swelling. COMPARISON STUDY: Pelvic CT dated 03/07/2018. Scrotal ultrasound dated 06/26/2024. TECHNIQUE: Following the IV administration of 90 cc of Optiray 320, CT scan of the pelvis is performe d from the pelvic inlet to the femoral shafts. Images are reviewed in the axial, sagittal, and cano l planes. IV contrast was administered without complication. A dose lowering technique was utilized a dhering to the principles of ALARA. CT DOSE: 1744.09 mGy.cm FINDINGS: The bladder is decompressed around a Fish catheter. There is pericystic inflammation. The prostate g land is diminutive and heterogeneous. The seminal vesicles are atrophic. No free fluid is cc in the p rip. Imaged portions of the small bowel and colon show no evidence of obstruction. A normal appendi x is identified in the right lower quadrant. There is moderate diverticulosis of the imaged colon wit hout CT evidence of acute diverticulitis. No pelvic sidewall or inguinal lymphadenopathy is identifie d. The scrotal wall is markedly thickened and edematous. There is a peripherally enhancing multiloculate d appearing structure within the scrotal wall in the midline seen on axial image #565. This measures 4.9 x 7.4 x 5.2 cm and likely corresponds to the structure seen by ultrasound. There are bilateral hy droceles, left larger than right. The testes are normal as imaged by CT. No soft tissue gas is seen i n the pelvis or perineum. The bony pelvis appears intact. No lytic or blastic lesion is seen. Degenerative sclerosis is noted i n the sacroiliac joints, left greater than right. The regional musculature is normal and symmetric. IMPRESSION: 1. The bladder is decompressed around a Fish catheter and there is pericystic inflammation. Correlat e with clinical findings and urinalysis. 2. The scrotal wall is markedly thickened and edematous suggesting cellulitis. 3. Again seen is a 7.4 cm thick-walled and peripherally enhancing multiloculated structure within the midline scrotal wall. This is indeterminant and may representing phlegmonous change/developing absce ss. Follow-up to resolution is recommended to exclude the much less likely possibility of soft tissue lesion. 4. Bilateral hydroceles, left larger than right. 5. Sigmoid diverticulosis without CT evidence of acute diverticulitis. ACT 112: Negative or not required by law. Electronically signed by: Riki Phillip M.D. 06/26/2024 7:06 PM
[2024-06-26 19:10] LABS: Appearance Urine Clear (Clear); Bacteria Urine Automated None Seen (None Seen); Bilirubin Urine Negative (Negative); Blood Urine Negative (Negative); Cast Urine Automated 0-2 /lpf (0-2); Color Urine Yellow; Epithelial Cell Urine Auto 0-2 /hpf (0-2); Glucose Urine UA Negative (Negative); Ketones Urine Negative (Negative); Leukocyte Esterase Urine 1+ (Negative); Nitrite Urine Negative (Negative); Protein Urine Negative (Negative); RBC Urine Automated 0-2 /hpf (0-2); Specific Gravity Urine > 1.045 (1.000-1.030); Urobilinogen Urine Negative (Negative); WBC Urine Automated 0-5 /hpf (0-5); pH Urine 5.5 (4.5-7.5)
[2024-06-26] MEDS: VANCOMYCIN HCL 2,750 MG in SODIUM CHLORIDE 0.9% 500 ML IV ONE (19:29)
[2024-06-26] MEDS ORDERED: ACETAMINOPHEN 325 MG TAB PO PRN (19:52)
--- NOTE | 2024-06-26 21:02 | History & Physical Report ---
Date of Service June 26, 2024 Assessment & Plan (1) Cellulitis of scrotum: (2) Abscess of scrotum: (3) BPH (benign prostatic hyperplasia): (4) Essential tremor: Plan: Assessment and plan per Dr Martinez. See addendum. Pt follows with PCP [place] Gallardo History of Present Illness Chief Complaint: groin pain Primary Care Provider: Dougie Luna Patient is 63-year-old male with PMH discoid lupus, BPH, recurrent UTI presented to ER with c/o right scrotal swelling x 3-4 days. States right scrotal pain and edema worsened so came to ER today. Per outpatient chart review patient follows with Dr. Sen, urology. On 06/15/[address] Sen. History urinary retention after procedure and had catheter placed 06/15/24 in [facility] ER. Reports was on Keflex and last day is tomorrow. He denies any improvement. He has been applying ice to area without much relief. Denies fever/chills, diaphoresis, N/V/D/C, HERRING, dizziness, CP, SOB, cough, sore throat, rhinorrhea, abdominal pain, flank pain, back pain, paresthesias, weakness, extremity weakness, extremity edema, rashes, hematuria. Allergies Allergy/AdvReac Type Severity Reaction Status Date / Time No Known Allergies Allergy Verified 06/26/24 18:14 Home Medications Medication Instructions Recorded Confirmed Type finasteride 5 mg tablet (Proscar) 5 mg PO QAM 08/09/18 06/26/24 History tamsulosin 0.4 mg capsule (Flomax) 0.4 mg PO DAILY #7 caps 06/16/22 06/26/24 Rx Aries Hose #1 ea 07/05/22 05/21/24 Rx hydroxychloroquine 200 mg tablet 400 mg (2 x 200 mg) PO DAILY #60 11/25/23 06/26/24 Rx (Plaquenil) tabs propranolol 80 mg capsule,24 80 mg PO DAILY #30 caps 05/18/24 06/26/24 Rx hr,extended release cephalexin 500 mg capsule 500 mg PO DIRECTED 06/26/24 06/26/24 History cetirizine 10 mg tablet 10 mg PO DAILY PRN ALLERGIES 06/26/24 06/26/24 History naproxen 500 mg tablet 500 mg PO BID PRN Pain (Scale 06/26/24 06/26/24 History Score 1-3) Past Med/Surg History Problem List (Updated 06/26/24 @ 22:38 by Gillian Delacruz PA-C) BPH (benign prostatic hyperplasia) Cellulitis of scrotum (Acute) Abscess of scrotum (Acute) Encounter for Fish catheter fitting and adjustment (Acute) Urinary retention (Acute) Cystitis (Acute) Hematuria (Acute) Discoid lupus erythematosus Follows with [facility] - stable Last seen 11/30/21- stable- follow up in six months Bilateral primary osteoarthritis of knee Internal derangement of knee Cyst of lateral meniscus of right knee Lateral meniscus tear History of arthroscopy of right knee Knee effusion Essential tremor Osteoarthritis of right knee Atypical chest pain Dyspnea Preoperative cardiovascular examination Status post total right knee replacement Arthralgia Medical History (Updated 06/26/24 @ 22:38 by Gillian Delacruz PA-C) Essential tremor On propranolol, follows with [facility]- last seen 11/10/21 Noted to bilateral hands Encounter for pre-operative examination History of herniated intervertebral disc NO SURGERY REQUIRED Lumbar spine ( right side) Surgical History S/P right knee arthroscopy History of open reduction and internal fixation (ORIF) procedure RT ANKLE History of colonoscopy History of tooth extraction History of tonsillectomy Family History Brother No problems noted. Brother Family history of diabetes mellitus Sister Family history of diabetes mellitus Other No family history of adverse response to anesthesia No pertinent family history in first degree relatives Social History Smoking Status: Former smoker Cigarettes Per Day: 1 pack per month for about 3 years; Second Hand Exposure: No; Do You Dip or Chew Tobacco: No; Hx Alcohol Use: Yes Alcohol type: beer Hx Substance Use: No Preferred Language: Greenlandic Communication Ability: Effective Medical Translator Required: No Beliefs That Will Affect Care: None marital status: Current Living Situation: Spouse Feels Safe at Home: Yes Assistive Devices: Walker Review of Systems Review of Systems: All systems reviewed & are unremarkable except as noted in HPI & below Physical Exam Physical Exam: General: no distress, obese male Head: normocephalic, atraumatic Eyes: conjunctiva non-injected, anicteric ENT: normal inspection external ears, nose, mucous membranes moist Neck: supple, trachea midline Lungs: clear, no respiratory distress, no wheezing/rhonchi/rales CV: RRR, no murmur, no pretibial edema Abd: protuberant, normal BS, soft, non-tender Ext: +brown discoloration to bilateral lower legs, no calf tenderness Neuro: A&O x 3, no focal deficits noted, normal affect Skin: warm, dry Results & Data Results & Data Vital Signs (Past 12 Hours) Vital Signs Temp Pulse Pulse Resp BP BP Pulse Ox 06/26/24 19:00 63 18 95/65 L 96 06/26/24 18:22 67 06/26/24 18:15 69 18 107/70 95 06/26/24 17:41 71 20 121/85 97 06/26/24 14:01 36.6 C 92 H 16 132/84 98 06/26/24 13:54 36.4 C L 99 H 20 128/93 96 O2 Del Method 06/26/24 19:00 Room Air 06/26/24 18:22 06/26/24 18:15 Room Air 06/26/24 17:41 06/26/24 14:01 Room Air 06/26/24 13:54 Room Air Laboratory Results Short CBC 06/26/24 Range/Units 15:49 WBC 10.46 (4.8-10.8) K/ul Hgb 13.5 L (14.0-18.0) g/dl Hct 41.5 L (42.0-52.0) % Plt Count 261 (130-400) K/uL BMP 06/26/24 15:49 Sodium 136 Potassium 4.2 Chloride 100 Carbon Dioxide 29 BUN 17 Creatinine 0.99 Glucose 82 Calcium 9.3 Liver Function 06/26/24 Range/Units 15:49 Total Bilirubin 0.5 (0.2-1.0) mg/dl AST 21 (13-39) U/L ALT 30 (7-52) U/L Alkaline Phosphatase 75 (34-104) U/L Albumin 4.0 (3.4-5.0) gm/dl Urine 06/26/24 Range/Units 18:49 Urine Color Yellow Urine Appearance Clear (Clear) Urine pH 5.5 (4.5-7.5) Ur Specific Correll > 1.045 H (1.000-1.030) Urine Protein Negative (Negative) Urine Glucose (UA) Negative (Negative) Diagnostic Findings Scrotum Ultrasound 06/26/24 15:52 ULTRASOUND TESTES AND SCROTUM CLINICAL HISTORY: Scrotal swelling and erythema COMPARISON STUDY: No priors TECHNIQUE: Real-time, grayscale, and color Doppler sonography of the testes and scrotum is performed. Images are reviewed in the transverse and longitudinal planes. FINDINGS: The testes are normal in size and homogeneous in echotexture. The right testis measures 3.3 x 2.1 x 2.6 cm and the left testis measures 3.7 x 2.9 x 2.8 cm. No intratesticular mass is seen. Testicular blood flow is normal and symmetric. Normal Doppler waveforms are identified in both testes. The epididymal heads are normal as imaged. The scrotal wall is markedly thickened and edematous and shows hyperemia on color imaging. There is a complex heterogeneous hypoechoic focus in the midline scrotum which measures 6.4 x 4.6 x 4.2 cm. This show significant peripheral hyperemia and may represent phlegmonous change/developing abscess. There is a small right-sided hydrocele. A 5.7 cm complex loculated hydrocele is suggested on the left. No varicocele is identified. IMPRESSION: 1. Normal sonographic appearance of the testes. 2. There is marked thickening and edema of the scrotal wall with hyperemia on color imaging, typical in appearance for cellulitis. 3. There is a 6.4 cm complex hypoechoic structure/collection in the midline scrotum with corresponding hyperemia. This merits and phlegmonous change/neptali lving abscess. Clinical correlation will be essential. 4. Bilateral hydroceles as above, left larger than right. ACT 112: Negative or not required by law. Electronically signed by: Riki Phillip M.D. 06/26/2024 5:[address] 06/26/24 17:50 CT SCAN OF THE PELVIS WITH IV CONTRAST CLINICAL HISTORY: Scrotal pain and swelling. COMPARISON STUDY: Pelvic CT dated 03/07/2018. Scrotal ultrasound dated 06/26/2024. TECHNIQUE: Following the IV administration of 90 cc of Optiray 320, CT scan of the pelvis is performed from the pelvic inlet to the femoral shafts. Images are reviewed in the axial, sagittal, and coronal planes. IV contrast was administered without complication. A dose lowering technique was utilized adhering to the principles of ALARA. CT DOSE: 1744.09 mGy.cm FINDINGS: The bladder is decompressed around a Fish catheter. There is pericystic inflammation. The prostate gland is diminutive and heterogeneous. The seminal vesicles are atrophic. No free fluid is cc in the pelvis. Imaged portions of the small bowel and colon show no evidence of obstruction. A normal appendix is identified in the right lower quadrant. There is moderate diverticulosis of the imaged colon without CT evidence of acute diverticulitis. No pelvic sidewall or inguinal lymphadenopathy is identified. The scrotal wall is markedly thickened and edematous. There is a peripherally enhancing multiloculated appearing structure within the scrotal wall in the midline seen on axial image #565. This measures 4.9 x 7.4 x 5.2 cm and likely corresponds to the structure seen by ultrasound. There are bilateral hydroceles, left larger than right. The testes are normal as imaged by CT. No soft tissue gas is seen in the pelvis or perineum. The bony pelvis appears intact. No lytic or blastic lesion is seen. Degenerative sclerosis is noted in the sacroiliac joints, left greater than right. The regional musculature is normal and symmetric. IMPRESSION: 1. The bladder is decompressed around a Fish catheter and there is pericystic inflammation. Correlate with clinical findings and urinalysis. 2. The scrotal wall is markedly thickened and edematous suggesting cellulitis. 3. Again seen is a 7.4 cm thick-walled and peripherally enhancing multiloculated structure within the midline scrotal wall. This is indeterminant and may representing phlegmonous change/developing abscess. Follow-up to resolution is recommended to exclude the much less likely possibility of soft tissue lesion. 4. Bilateral hydroceles, left larger than right. 5. Sigmoid diverticulosis without CT evidence of acute diverticulitis. ACT 112: Negative or not required by law. Electronically signed by: Riki Phillip M.D. 06/26/2024 7:06 PM Supervising Physician Co-Signing Physician Notes IM ATTENDING : Patient seen and examined. History obtained from patient and records. Concur with salient points upon review of preceding documentation by Ms. Gillian Delacruz PA-C. I take responsibility for plan of care below. FINAL ASSESSMENT AND PLAN as follows : Scrotal abscess, no sepsis for now Discoid LE on hydroxychloroquine BPH, history of bladder out obstruction, on regular CIC at home Essential tremor on propranolol Admit to F Doxycycline and Zosyn Urology consult re: scrotal abscess (ED provider already in touch with Dr. Tapia.) DVT prophylaxis. Lovenox subcu Full code Text document was generated using [employer] voice recognition software. It may contain grammatical or spelling errors. Kindly contact undersigned for clarification of any documentation item in question.
[2024-06-26] MEDS: KETOROLAC TROMETHAMINE 15 MG/ML VIAL IV ONE (21:26)
[2024-06-26] MEDS: LORATADINE 10 MG TAB PO ONE (21:28)
[2024-06-26] MEDS: oxyCODONE HCL IR 5 MG TAB (IMMEDIATE RELEASE) PO PRN (21:28)
--- OUTSIDE RECORDS SUMMARY | 2024-06-26 23:44 | External Medical Summary | Summary of Care ---
Author Name Unknown Organization [facility] Address [address] [facility] [place] [address] Phone [phone] Care Team Providers Care Director Account Management Name Role Phone Sharyn Padilla MD Primary Care Provider [phone] Reason for Visit * Reason Comments Nurse Documentation Encounter Details Date Type Department Care Team (Late st Contact Info) Description 06/18/2024 9:30 AM EDT Nurse Only Urology, [facility] [address] [facility] [address] Nurse [place] [address] [place] [address] Nurse Documentation Allergies No known active allergiesdocumented as of this encounter (statuses as of 06/18/2024) Medications Medication Sig Dispensed Refills Start Date End Date Status MOMETASONE FUROATE 0.1 % EX CREA apply as directed daily 0 01/06/2007 Active FLUOCINONIDE 0.05 % EX SOLN twice daily to scalp 0 01/06/2007 Active hydroxychloroquine (PLAQUENIL) 200 MG Tablet Take 2 Tablets by mouth in the morning. Active Desonide 0.05 % External Lotion Apply topically to affected area. Active Finasteride 5 MG Oral Tablet (Proscar)Indication s:Incomplete emptying of bladder,Acute cystitis without hematuria Take 1 Tablet by mouth in the morning. 90 Tablet 3 06/25/2023 Active Tamsulosin HCl 0.4 MG Oral Capsule (Flomax)Indications :Incomplete emptying of bladder,Acute cystitis without hematuria Take 1 Capsule by mouth in the morning. 90 Capsule 3 06/25/2023 Active Acetaminophen ER 650 MG Oral Tablet Extended Release (Acetaminophen 8 Hour) 1,000 mg. 06/16/2022 Active Propranolol HCl ER 80 MG Oral Capsule Extended Release 24 Hour (Inderal LA) TAKE ONE CAPSULE BY MOUTH ONCE DAILY 01/15/2023 Active Naproxen 500 MG Oral Tablet (Naprosyn) 1 Tablet. 03/22/2023 Active predniSONE 20 MG Oral Tablet (Deltasone)Indicati ons:Allergic rhinitis due to pollen, unspecified seasonality,Upper respiratory tract infection, unspecified type Take 2 Tablets by mouth in the morning for 5 days. 10 Tablet 06/13/2024 06/18/2024 Active Ventolin HFA 108 (90 Base) MCG/ACT Inhalation Aerosol SolutionIndications :Allergic rhinitis due to pollen, unspecified seasonality,Upper respiratory tract infection, unspecified type Inhale 2 Puffs by mouth every 4 hours as needed for Wheezing or Shortness of Breath. 18 g 06/13/2024 Active Cetirizine HCl 10 MG Oral CapsuleIndications: Allergic rhinitis due to pollen, unspecified seasonality Take 1 Capsule by mouth in the morning. 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 documented as of this encounter (statuses as of 06/18/2024) Social History Tobacco Use Types Packs/Day Years Used Date Smoking Tobacco: Former Cigarettes 0 09/23/1998 - 09/23/2002 Smokeless Tobacco: Never Alcohol Use Standard Drinks/Week Comments Yes 0 (1 standard drink = 0.6 oz pur e alcohol) occassional Utilities Answer Date Recorded Do you have trouble paying y our heating, water, or electric bill? (Adult - for ages 18 years and over) Not on file 03/10/2024 Is your family able to pay t he heat, water, or electric bill? (Household - for ages 0-17 years) Not on file 03/10/2024 Does your family have access to good internet? (Household - for ages 0-17 years) Not on file 03/10/2024 Social Connections Answer Date Recorded How often do you feel lonely or isolated from those around you? (Adult - for ages 18 years and over) Not on file 03/10/2024 Sex and Gender Information Value Date Recorded Sex Assigned at Not on file Gender Identity Not on file Sexual Orientation Not on file Job Start Date Occupation Industry Not on file Not on file Not on file documented as of this encounter Nursing Notes * Renate Pritchard LPN - 06/18/2024 11:10 AM EDT Patient has rx for keflex 500 mg BID x 10 days at home. Per TT with Dr Sen, patient should take this. Lft msg for pt to return call to office. * Kenia Gaitan LPN - 06/18/2024 9:30 AM EDT Pt presents in office for nurse evaluation of his catheter/groin. Patient verbalized his testicles have swollen since yesterday and is concerned. I evaluated the patients testicles, both present withswelling, warm to the touch, right testicle is swollen, firm and patient verbalized patient with palpation. Left is larger-swollen, and warm to touch, soft, denied pain on left. Other nurse TT to provider documented in this encounter Plan of Treatment Upcoming Encounters Date Type Department Care Team (Latest Contact Info) Description 07/13/2024 9:45 AM EDT Hospital Encounter OR [facility], Operating Room [facility] [address] [place] [phone] Jayden Sen MD [address] [place] [address] 07/13/2024 9:45 AM EDT - 07/13/2024 11:05 AM EDT Surgery OR [facility], Operating Room [facility] [address] [place] [phone] Jayden Sen MD [address] [place] [address] LASER VAPORIZATION PROSTATE 07/20/2024 10:00 AM EDT Nurse Only Urology, [facility] [address] [facility] [place] [address] [facility] Nurse Urology [facility] [address] [place] [address] 08/03/2024 2:45 PM EST Office Visit Urology, [facility] [address] [place] [address] Jayden Sen MD [address] [place] [address] Scheduled Procedures Name Priority Associated Diagnoses Date/Ti me LASER VAPORIZATION PROSTATE BPH with obstruction/lower urinary tract symptoms 07/13/2024 9:45 AM EDT Health Maintenance Due Date Last Done Comments Lipid Panel 1960 COVID-19 Vaccine (#1) 1965 Pneumococcal Vaccine: Pediatrics (0 to 5 Years) and At-Risk Patients (6 to 64 Years) (1 of 2 - PCV) 1966 Depression Screening 1972 HIV Screening 1975 Hepatitis C Screening 1978 DTap/Tdap Vaccines (1 - Tdap) 1979 Zoster Vaccines (1 of 2) 1979 Cologuard 2005 Fecal Occult Blood Test 2005 Sigmoidoscopy 2005 Influenza Vaccine (FLU shot) (#1) 2024 10/01/2018 Colonoscopy 12/31/2026 12/31/2016, 12/31/2016 Colorectal Cancer Screening 12/31/2026 Diabetes Screening 06/15/2027 06/15/2024, 02/27/2023, 07/05/2020 HPV (Gardasil) Vaccine Aged Out No lo nger eligible based on patient's age to complete this topic Hepatitis B Vaccine Aged Out No longe r eligible based on patient's age to complete this topic MENINGOCOCCAL (MENACTRA/MENVEO) Aged Out No longer eligible b ased on patient's age to complete this topic documented as of this encounter Medical Devices Not on filedocumented as of this encounter Care Teams Director Account Management Relationship Specialty Start Date End Date Sharyn Padilla MD [address] [place], [place] [address] [id number] PCP - General Family Medicine 06/15/24 documented as of this encounter
--- OUTSIDE RECORDS SUMMARY | 2024-06-26 23:44 | External Medical Summary | Summary of Care ---
Author Name Unknown Organization [facility] Address [address] [facility] [place] [address] Phone [phone] Care Team Providers Care Auto Seat Cover Installer Name Role Phone Sharyn Padilla MD Primary Care Provider [phone] Reason for Visit * Reason Onset Date Comments Medication Refill 06/22/2024 Encounter Details Date Type Department Care Team (Late st Contact Info) Description 06/22/2024 Refill Urology, [facility] [address] [facility] [place] [address] Jayden Mcneil MD [address] [facility] [place] [address] Incomplete emptying of bladder; Acute cystitis without hematuria [N30.00] Allergies No known active allergiesdocumented as of this encounter (statuses as of 06/22/2024) Medications Medication Sig Dispensed Refills Start Date End Date Status MOMETASONE FUROATE 0.1 % EX CREA apply as directed daily 0 01/06/2007 Active FLUOCINONIDE 0.05 % EX SOLN twice daily to scalp 0 01/06/2007 Active hydroxychloroquin e (PLAQUENIL) 200 MG Tablet Take 2 Tablets by mouth in the morning. Active Desonide 0.05 % External Lotion Apply topically to affected area. Active Tamsulosin HCl 0.4 MG Oral Capsule (Flomax)Indicatio ns:Incomplete emptying of bladder,Acute cystitis without hematuria Take [...] Oral Tablet (Naprosyn) 1 Tablet. 03/22/2023 Active Ventolin HFA 108 (90 Base) MCG/ACT Inhalation Aerosol SolutionIndicatio ns:Allergic rhinitis due to pollen, unspecified seasonality,Upper respiratory tract infection, unspecified type Inhale 2 Puffs by mouth every 4 hours as needed for Wheezing or Shortness of Breath. 18 g 06/13/2024 Active Cetirizine HCl 10 MG Oral CapsuleIndication s:Allergic rhinitis due to pollen, unspecified seasonality Take 1 Capsule by mouth in the morning. 30 Capsule 2 06/13/2024 Active Finasteride 5 MG Oral Tablet (Proscar)Indicati ons:Incomplete emptying of bladder,Acute cystitis without hematuria Take 1 Tablet by mouth in the morning. 90 Tablet 3 06/22/2024 Active Finasteride 5 MG Oral Tablet (Proscar)Indicati ons:Incomplete emptying of bladder,Acute cystitis without hematuria Take 1 Tablet by mouth in the morning. 90 Tablet 3 06/25/2023 06/22/2024 Discontinue d(Refill) documented as of this encounter (statuses as of 06/22/2024) Active Problems Problem Noted Date Diagnosed Date [...] as of this encounter (statuses as of 06/22/2024) Social History Tobacco Use Types Packs/Day Years [...] on file documented as of this encounter Miscellaneous Notes * Telephone Encounter - Jayden Mcneil MD - 06/22/2024 2:10 PM EDTSigned Prescriptions: Disp Refills Finasteride 5 MG Oral Tablet (Proscar) 90 Tab*3 Sig: Take 1 Tablet by mouth in the morning. Authorizing Provider: JAYDEN MCNEIL * Telephone Encounter - Renate Pritchard LPN - 06/22/2024 12:59 PM EDT Refill of finasteride requested. Last appt: 10/15/2023 (in office), Visit date not found (telemedicine) Next appt: 07/20/2024 Review of patient's allergies indicates: No Known Allergies Thank you, Kate documented in this encounter Plan of Treatment Upcoming Encounters Date Type Department Care Team (Latest Contact Info) Description 07/13/2024 9:45 AM EDT Hospital Encounter OR [facility], Operating Room [facility] [address] [place] [phone] Jayden Mcneil MD [address] [place] [address] 07/13/2024 9:45 AM EDT - 07/13/2024 11:05 AM EDT Surgery OR [facility], Operating Room [facility] [address] [phone] Jayden Mcneil MD [address] [place] [address] LASER VAPORIZATION PROSTATE 07/20/2024 10:00 AM EDT Nurse Only Urology, [facility] [address] [place] [address] [place], Nurse Urology [facility] [address] [place] [address] 08/03/2024 2:45 PM EST Office Visit Urology, [facility] [address] [place] [address] Jayden Mcneil MD [address] [place] [address] Scheduled Procedures Name Priority Associated Diagnoses Date/Ti [...] Not on filedocumented as of this encounter Visit Diagnoses Diagnosis BPH with obstruction/lower urinary tract symptoms- Primary Hypertrophy of prostate with urinary obstruction and other lower urinary tract symptoms (LUTS) Incomplete emptying of bladder Incomplete bladder emptying Acute cystitis without hematuria [N30.00] Acute cystitis BPH with obstruction/lower urinary tract symptoms Hypertrophy of prostate with urinary obstruction and other lower urinary tract symptoms (LUTS) documented in this encounter Care Teams Auto Seat Cover Installer Relationship Specialty Start Date End Date Sharyn Padilla MD [address] [place] [address] PCP - General Family Medicine 06/15/24 documented as of this encounter
--- OUTSIDE RECORDS SUMMARY | 2024-06-26 23:44 | External Medical Summary | Summary of Care ---
Author Name Unknown Organization [facility] Address [address] [facility] [place] [address] Phone [phone] Care Team Providers Care Self Pay Collector Name Role Phone Sharyn Padilla MD Primary Care Provider [phone] Reason for Visit * Reason Comments Nurse Documentation Encounter Details Date Type Department Care Team (Late st Contact Info) Description 06/18/2024 9:30 AM EDT Nurse Only Urology, [facility] [address] [facility] [address] Nurse C[facility]ar Urology [facility] 132 [place] [address] Nurse Documentation Allergies No known active allergiesdocumented [...] as of this encounter Nursing Notes * Kenia Gaitan LPN - 06/18/2024 9:30 [...] Encounter OR [facility], Operating Room [facility] [address] [place] [address] Jayden Sen MD [address] [place] [address] 07/13/2024 9:45 AM EDT - 07/13/2024 11:05 AM EDT Surgery OR [facility], Operating Room [facility] [address] [place] [phone] Jayden Sen MD [address] [place] [address] LASER VAPORIZATION PROSTATE 07/20/2024 10:00 AM EDT Nurse Only Urology, [facility] [address] [place] [address] [place] Nurse Urology [facility] [address] [place] [address] 08/03/2024 2:45 PM EST Office Visit Urology, [facility] [address] [place] [address] Jayden Sen MD [address] [place] [address] Scheduled Procedures Name Priority Associated Diagnoses Date/Ti [...] filedocumented as of this encounter Care Teams Self Pay Collector Relationship Specialty Start Date End Date Sharyn Padilla [facility] [place] [address] PCP - General Family Medicine 06/15/24 documented as of this encounter
--- OUTSIDE RECORDS SUMMARY | 2024-06-26 23:44 | External Medical Summary | Summary of Care ---
Author Name Unknown Organization [facility] Address [address] [facility] [place] [address] Phone [phone] Care Team Providers Care Php Magento Developer Name Role Phone Sharyn Padilla MD Primary Care Provider [phone] Reason for Visit * Reason Comments Nurse Documentation Encounter Details Date Type Department Care Team (Late st Contact Info) Description 06/18/2024 9:30 AM EDT Nurse Only Urology, [facility] [address] [facility] [address] Nurse César Urology [facility] 132 [place] [address] Nurse Documentation Allergies No known active allergiesdocumented [...] Operating Room [facility] [address] [place] [phone] Jayden Sen MD [address] [place] [address] 07/13/2024 9:45 AM EDT - 07/13/2024 11:05 AM EDT Surgery OR [facility], Operating Room [facility] [address] [place] [address] Jayden Sen MD [address] [place] [address] LASER VAPORIZATION PROSTATE 07/20/2024 10:00 AM EDT Nurse Only Urology, [facility] 132 [facility] [place] [address] [facility] Nurse Urology [facility] [address] [place] [address] 08/03/2024 2:45 PM EST Office Visit Urology, [facility] [address] [place] [address] Jayden Sen MD [address] [place] [address] Scheduled Procedures Name Priority Associated Diagnoses Date/Ti [...] filedocumented as of this encounter Care Teams Php Magento Developer Relationship Specialty Start Date End Date Sharyn Padilla MD [address] [place], [place] [address] [address] PCP - General Family Medicine 06/15/24 documented as of this encounter
--- OUTSIDE RECORDS SUMMARY | 2024-06-26 23:44 | External Medical Summary | Summary of Care ---
Author Name Unknown Organization [facility] Address [address] [facility] [place] [address] Phone [phone] Care Team Providers Care Electronic Equipment Set Up Operator Name Role Phone Sharyn Padilla MD Primary Care Provider [phone] Reason for Visit * Reason Comments Nurse Documentation Encounter Details Date Type Department Care Team (Late st Contact Info) Description 06/18/2024 9:30 AM EDT Nurse Only Urology, [facility] [address] [facility] [address] Nurse César Urology [facility] 132 [facility] [place] [address] Nurse Documentation Allergies No known active allergiesdocumented [...] Notes * Renate Pritchard LPN - 06/18/2024 11:30 AM EDT Spoke with patient. Aware to take antibiotics, will contact office if he is not feeling better by Saturday. * Renate Pritchard LPN - 06/18/2024 11:10 [...] 07/13/2024 9:45 AM EDT Hospital Encounter OR [facility], Operating Room [facility] [address] [place] [phone] Jayden Sen MD [address] [place] [address] 07/13/2024 9:45 AM EDT - 07/13/2024 11:05 AM EDT Surgery OR [facility], Operating Room [facility] [address] [place] [phone] Jayden Sen MD [address] [place] [address] LASER VAPORIZATION PROSTATE 07/20/2024 10:00 AM EDT Nurse Only Urology, [facility] [address] [place] [address] [facility] Nurse Urology [facility] [address] [place] [address] 08/03/2024 2:45 PM EST Office Visit Urology, [facility] [address] [place] [address] Jayden Sen MD [address] [place] [address] Scheduled Procedures Name Priority Associated Diagnoses Date/Ti [...] filedocumented as of this encounter Care Teams Electronic Equipment Set Up Operator Relationship Specialty Start Date End Date Sharyn Padilla MD 9 [place] [address] PCP - General Family Medicine 06/15/24 documented as of this encounter
--- OUTSIDE RECORDS SUMMARY | 2024-06-26 23:44 | External Medical Summary | Summary of Care ---
Author Name Unknown Organization [facility] Address [address] [facility] [place] [address] Phone [phone] Care Team Providers Care Key Account Coordinator Name Role Phone Sharyn Padilla MD Primary Care Provider [phone] Encounter Details Date Type Department Care Team (Late st Contact Info) Description 06/24/2024 Telephone Urology, [facility] 132 [facility] [place] [phone] Jayden Sen MD [address] [place] [address] Allergies No known active allergiesdocumented as of this encounter (statuses as of 06/26/2024) Medications Medication Sig Dispensed Refills Start Date [...] Active Tamsulosin HCl 0.4 MG Oral Capsule (Flomax)Indications: Incomplete emptying of bladder,Acute cystitis without hematuria Take [...] HFA 108 (90 Base) MCG/ACT Inhalation Aerosol SolutionIndications: Allergic rhinitis due to pollen, unspecified seasonality,Upper respiratory tract infection, unspecified type Inhale 2 Puffs by mouth every 4 hours as needed for Wheezing or Shortness of Breath. 18 g 06/13/2024 Active Cetirizine HCl 10 MG Oral CapsuleIndications:A llergic rhinitis due to pollen, unspecified seasonality Take 1 Capsule by mouth in the morning. 30 Capsule 2 06/13/2024 Active Finasteride 5 MG Oral Tablet (Proscar)Indications :Incomplete emptying of bladder,Acute cystitis without hematuria Take 1 Tablet by mouth in the morning. 90 Tablet 3 06/22/2024 Active documented as of this encounter (statuses as of 06/26/2024) Active Problems Problem Noted Date Diagnosed Date Scrotal swelling 06/24/2024 Bilateral primary osteoarthritis of knee 024 Cyst [...] as of this encounter (statuses as of 06/26/2024) Social History Tobacco Use Types Packs/Day Years [...] encounter Miscellaneous Notes * Telephone Encounter - Kenia Gaitan LPN - 06/26/2024 9:21 AM EDT I spoke with [place], patients on HIPAA. She states the patient is in significant pain, both testes are hard, swollen, warm to touch. This is day 12, and the antibiotic is showing improvement. Patient was advised to proceed to ED for evaluation/pain management, and potential IV antibiotics. Advised would send to provider for further recommendations. He will be going to [facility]. Kenia Dangelo LPN * Telephone Encounter - Jolene Yanez [facility] - 06/24/2024 1:02 PM EDT Patient is scheduled for 07/01 for U/s and culture. * Telephone Encounter - Renate Pritchard LPN - 06/24/2024 11:03 AM EDT Spoke with pt. Please contact him to schedule ultrasound, and let nursing know when this is scheduled. Hopefully we can coordinate US and urine sample same day, but depends on timing. Pt aware. Denies n/v/fever/chills. Thank you Kate * Telephone Encounter - Jayden Sen MD - 06/24/2024 10:54 AM EDT Patient with complaint of ongoing scrotal swelling. Scrotal ultrasound ordered for further evaluation. Patient should present to the ER with fevers, chills, nausea, vomiting or other signs or symptoms of infection. Thanks, HM documented in this encounter Plan of Treatment Upcoming Encounters Date Type Department Care Team (Latest Contact Info) Description 07/01/2024 11:30 AM EDT Imaging Radiology [facility] [address] [place] [address] 07/01/2024 1:00 PM EDT Nurse Only Urology, [facility] [address] [place] [address] [facility] Nurse Urology [facility] [address] [place] [address] 07/13/2024 9:45 AM EDT Hospital Encounter OR [facility], Operating Room [facility] [address] [place] [address] Jayden Sen MD [address] [place] [address] 07/13/2024 9:45 AM EDT - 07/13/2024 11:05 AM EDT Surgery OR [facility], Operating Room [facility] [address] [place] [address] Jayden Sen MD [address] [place] [address] LASER VAPORIZATION PROSTATE 07/20/2024 10:00 AM EDT Nurse Only Urology, [facility] [address] [place] [address] [facility] Nurse Urology [facility] [address] [place] [address] 08/03/2024 2:45 PM EST Office Visit Urology, [facility] [address] [place] [address] Jayden Sen MD [address] [place] [address] Scheduled Orders Name Type Priority Associated Diagnoses Orde r Schedule US SCROTUM/TESTES Medical Imaging Routine Scrotal swelling Expected: 06/24/2024, Expires: 07/25/2025 Scheduled Procedures Name Priority Associated Diagnoses Date/Ti [...] and other lower urinary tract symptoms (LUTS) Scrotal swelling- Primary Edema of male genital organs BPH with obstruction/lower urinary tract symptoms Hypertrophy of prostate with urinary obstruction and other lower urinary tract symptoms (LUTS) documented in this encounter Care Teams Key Account Coordinator Relationship Specialty Start Date End Date Sharyn Padilla MD [address] [place] [address] PCP - General Family Medicine 06/15/24 documented as of this encounter
--- OUTSIDE RECORDS SUMMARY | 2024-06-26 23:45 | External Medical Summary ---
Author Name Unknown Address Unknown Organization K01:[facility] - [address] [facility] [address] Laboratory Report Ordering Provider Test Date Status TARUN PIKE 06/15/2024 13:26:02 Final Observation Date Value Abnormality Reference (Units ) Status Bacteria identified in Specimen by Culture 06/15/2024 13:26:02 [id number]^KLEBSIELL A PNEUMONIAE Abnormal Final >100,000 colonies/mL Klebsie lla pneumoniae Bacteria identified in Specimen by Culture 06/15/2024 13:26:02 [id number]^BETA STREPTOCOCCUS GROUP B Abnormal Final 10,000 to 100,000 colonies/m L Beta Streptococcus group B Performing Location [facility] - [address] [facility] [address] Ordering Provider Test Date Status TARUN PIKE 06/15/2024 13:26:02 Final Observation Date Value Abnormality Reference (Units ) Status Ampicillin + Sulbactam 06/15/2024 13:26:02 16 Intermediate Final Cefazolin 06/15/2024 13:26:02 <=4 Susceptible Final Cefepime susceptibility 06/15/2024 13:26:02 <=1 Susceptible Final Ceftriaxone suceptibility 06/15/2024 13:26:02 <=1 Susceptible Final Ciprofloxacin 06/15/2024 13:26:02 <=0.25 Susceptible Final Due to serious side effects, the FDA has advised against using Ciprofloxacin to treat uncomplicated UTIs and respiratory tract infections unless there are no alternative treatment options. Gentamicin susceptibility 06/15/2024 13:26:02 <=1 Susc eptible Final Nitrofurantoin susceptibility 06/15/2024 13:26:02 >=512 Resistant Final TMP-SMZ susceptibility 06/15/2024 13:26:02 <=20 Suscept ible Final Performing Location [facility] - [address] [facility] [address] Ordering Provider Test Date Status TARUN PIKE 06/15/2024 13:26:02 Final Observation Date Value Abnormality Reference (Units ) Status Penicillin susceptibility 06/15/2024 13:26:02 0.12 Susceptible Final Vancomycinsusceptibility 06/15/2024 13:26:02 0.5 Susceptible Final Test: Culture, Urine, Quanti tative
Specimen Source: Urine, Clean Catch
Specimen Type: Urine
Specimen Date: 06/15/2024 1326
Result Date: 06/18/2024 0937
Result Status: Final result
Abnormal: Yes
Resulting Lab: [facility]
[address]
[facility] [address]

CULTURE

>100,000 colonies/mL Klebsiella pneumoniae (Abnormal)

10,000 to 100,000 colonies/mL Beta Streptococcus group B (Abnormal)

SUSCEPTIBILITY

Klebsiella Beta Streptococcus
pneumoniae group B
METHOD MICROBROTH DILUTIONS MICROBROTH DILUTIONS

AMPICILLIN/SULBACTAM 16 Intermediate
CEFAZOLIN <=4 Susceptible
CEFEPIME <=1 Susceptible
CEFTRIAXONE <=1 Susceptible
CIPROFLOXACIN <=0.25 Susceptible
[1]
GENTAMICIN <=1 Susceptible
NITROFURANTOIN >=512 Resistant
PENICILLIN G 0.12 Susceptible
TRIMETH/SULFAMETHOXAZOLE <=20 Susceptible
VANCOMYCIN 0.5 Susceptible

[1] Due to serious side effects, the FDA has advised against using
Ciprofloxacin to treat uncomplicated UTIs and respiratory tract infections
unless there are no alternative treatment options.

null Performing Location [facility] - [address] [facility] [address]
--- OUTSIDE RECORDS SUMMARY | 2024-06-26 23:45 | External Medical Summary | Summary of Care ---
Author Name Unknown Organization [facility] Address [address] [facility] [place] [address] Phone [phone] Care Team Providers Care Metal Mixer Name Role Phone Sharyn Padilla MD Primary Care Provider [phone] Reason for Visit * Reason Comments Nurse Documentation Encounter Details Date Type Department Care Team (Late st Contact Info) Description 06/18/2024 9:30 AM EDT Nurse Only Urology, [facility] [address] [facility] [address] Nurse César Urology [facility] 132 [place] [address] Nurse Documentation Allergies No known active allergiesdocumented [...] [phone] Jayden Sen MD [address] [place] [address] 07/13/2024 9:45 AM EDT - 07/13/2024 11:05 AM EDT Surgery OR [facility], Operating Room [facility] [address] [place] [phone] Jayden Sen MD [address] [place] [address] LASER VAPORIZATION PROSTATE 07/20/2024 10:00 AM EDT Nurse Only Urology, [facility] [address] [place] [address] [place] Nurse Urology [facility] [address] [place] [address] 08/03/2024 2:45 PM EST Office Visit Urology, [facility] [address] [place] [address] Jayden Sen MD [address] [place] [address] Scheduled Procedures Name Priority Associated Diagnoses Date/Ti [...] filedocumented as of this encounter Care Teams Metal Mixer Relationship Specialty Start Date End Date Sharyn Padilla [facility] [place] [address] PCP - General Family Medicine 06/15/24 documented as of this encounter
--- OUTSIDE RECORDS SUMMARY | 2024-06-26 23:45 | External Medical Summary | Summary of Care ---
Author Name Unknown Organization [facility] Address [address] [facility] [place] [address] Phone [phone] Care Team Providers Care Visual Basic Developer Name Role Phone Sharyn Padilla MD Primary Care Provider [phone] Reason for Visit * Reason Comments Outpatient Testing Encounter Details Date Type Department Care Team (Late st Contact Info) Description 06/15/2024 1:50 PM EDT Laboratory Laboratory, [facility] 132 [place] [phone] [facility] 132 [place] [address] BPH with obstruction/lower urinary tract symptoms Allergies No known active allergiesdocumented as of this encounter (statuses as of 06/15/2024) Medications Medication Sig Dispensed Refills Start Date [...] as of this encounter (statuses as of 06/15/2024) Active Problems Problem Noted Date Diagnosed Date [...] as of this encounter (statuses as of 06/15/2024) Social History Tobacco Use Types Packs/Day Years [...] on file documented as of this encounter Plan of Treatment Upcoming Encounters Date Type Department Care Team (Late st Contact Info) Description 07/13/2024 Hospital Encounter OR [facility], Operating Room [facility] [address] [place] [phone] Jayden Sen MD [address] [place] [address] 07/20/2024 10:00 AM EDT Nurse Only Urology, [facility] [address] [place] [address] César Nurse Urology [facility] [address] [place] [address] 08/03/2024 2:45 PM EST Office Visit Urology, [facility] [address] [place] [address] Jayden Sen MD [address] [place] [address] Pending Results Name Type Priority Associated Diagnoses Date /Time BASIC METABOLIC PANEL Lab Routine BPH with obstruction/lower urinary tract symptoms 06/15/2024 1:55 PM EDT Scheduled Procedures Name Priority Associated Diagnoses Date/Ti me LASER VAPORIZATION PROSTATE BPH with obstruction/lower urinary tract symptoms Health Maintenance Due Date Last Done Comments [...] Influenza Vaccine (FLU shot) (#1) 2024 10/01/2018 Diabetes Screening 02/27/2026 02/27/2023, 07/05/2020 Colonoscopy 12/31/2026 12/31/2016, 12/31/2016 Colorectal Cancer Screening 12/31/2026 HPV (Gardasil) Vaccine Aged Out No lo [...] Not on filedocumented as of this encounter Procedures Procedure Name Priority Date/Time Associated Diagnosis Comments CBC Routine 06/15/2024 1:55 PM EDT BPH with obstruction/lower urinary tract symptoms documented in this encounter Results * (ABNORMAL) CBC (06/15/2024 1:55 PM EDT) WBC 7.47 4.00 - 10.80 K/uL 06/15/2024 2:06 PM EDT [facility] [place] 57-10 RBC 4.65 4.50 - 5.25 M/uL 06/15/2024 2:06 PM EDT [facility] [place] 57-10 HGB 13.5(L) 14.0 - 16.8 g/dL 06/15/2024 2:06 PM EDT [facility] [place] 57-10 HCT 40.5 40.0 - 48.4 % 06/15/2024 2:06 PM EDT [facility] [place] 57-10 MCV 87.1 82.0 - 99.5 fL 06/15/2024 2:06 PM EDT [facility] [place] 57-10 MCH 29.0 27.0 - 34.0 pg 06/15/2024 2:06 PM EDT [facility] [place] 57-10 MCHC 33.3 32.0 - 36.0 g/dL 06/15/2024 2:06 PM EDT [facility] [place] 57-10 RDW 12.8 11.5 - 15.5 % 06/15/2024 2:06 PM EDT [facility] [place] 57-10 PLT 215 140 - 400 K/uL 06/15/2024 2:06 PM EDT [facility] [place] 57-10 MPV 10.2 6.6 - 11.1 fL 06/15/2024 2:06 PM EDT [facility] [place] 57-10 Blood Venous blood specimen / Unknown Venipuncture / Unknown 06/15/2024 1:55 PM EDT 06/15/2024 1:55 PM EDT Jayden Sen MD LAB BLOOD ORDERA BLES [facility] [place] [facility] [place] [address] documented in this encounter Visit Diagnoses Diagnosis 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
--- OUTSIDE RECORDS SUMMARY | 2024-06-26 23:45 | External Medical Summary | Summary of Care ---
Author Name Unknown Organization [facility] Address [address] [place] [place] [address] Phone [phone] Care Team Providers Care Gyroscope Technician Name Role Phone Sharyn Padilla MD Primary Care Provider [phone] Reason for Visit * Reason Comments Cystoscopy Encounter Details Date Type Department Care Team (Latest Contact Info) Description 06/15/2024 1:00 PM EDT Procedure Only Urology, [facility] [address] [facility] [place] [address] Jayden Sen MD 27 [facility] [place] [address] BPH with obstruction/lower urinary tract symptoms*; Incomplete emptying of bladder; Detrusor muscle hypertonia; Acute cystitis without hematuria; Other stricture of urethra in male [N35.819 (ICD-10-CM)] Allergies No known active allergiesdocumented as of [...] on file documented as of this encounter Progress Notes * Jayden Sen MD - 06/15/2024 1:00 PM EDT [id number] [place]: [place] [address] [phone] Ousmane Paul is a 63 year old male, who presents for cystoscopy for evaluation of recurrent UTI. Previous evaluation a year ago is reviewed. Patient continues to catheterize regularly. Difficulties with positive urine culture is noted. Patient feels this typically happens in the summer time. He isnow more open to considering GreenLight vaporization of prostate. Past notes reviewed. Urinary retention: On tamsulosin and finasteride. Previous urodynamics performed. Currently on CIC, performs twice to 3 times daily. Cysto June 2023 demonstrates urethritis, distal stenosis, obstructive prostate tissue, detrusor decompensation. Cystoscopy May 2024: Open urethral stricture, pain urethral, obstructive prostate tissue, decompensated and inflamed detrusor. PSA Results: Lab Results Component Value Date/Time PSA - [facility] 0.06 02/27/2023 01:35 PM PSA - [facility] 0.06 07/05/2020 03:36 PM PSA - [facility] 0.15 02/07/2017 02:30 PM PSA SCREENING 0.51 07/22/2015 03:17 PM Current Outpatient Medications Medication Sig Dispense Refill MOMETASONE FUROATE 0.1 % EX CREA apply as directed daily 0 FLUOCINONIDE 0.05 % EX SOLN twice daily to scalp 0 hydroxychloroquine (PLAQUENIL) 200 MG Tablet Take 2 Tablets by mouth in the morning. Desonide 0.05 % External Lotion Apply topically to affected area. Finasteride 5 MG Oral Tablet (Proscar) Take 1 Tablet by mouth in the morning. 90 Tablet 3 Tamsulosin HCl 0.4 MG Oral Capsule (Flomax) Take 1 Capsule by mouth in the morning. 90 Capsule 3 Acetaminophen ER 650 MG Oral Tablet Extended Release (Acetaminophen 8 Hour) 1,000 mg. Propranolol HCl ER 80 MG Oral Capsule Extended Release 24 Hour (Inderal LA) TAKE ONE CAPSULE BY MOUTH ONCE DAILY Naproxen 500 MG Oral Tablet (Naprosyn) 1 Tablet. predniSONE 20 MG Oral Tablet (Deltasone) Take 2 Tablets by mouth in the morning for 5 days. 10 Tablet 0 Ventolin HFA 108 (90 Base) MCG/ACT Inhalation Aerosol Solution Inhale 2 Puffs by mouth every 4 hours as needed for Wheezing or Shortness of Breath. 18 g 0 Cetirizine HCl 10 MG Oral Capsule Take 1 Capsule by mouth in the morning. 30 Capsule 2 No current facility-administered medications for this visit. Review of patient's allergies indicates: No Known Allergies Social History: Social History Tobacco Use Smoking status: Former Current packs/day: 0.00 Types: Cigarettes Start date: 09/23/1998 Quit date: 09/23/2002 Years since quittin.7 Smokeless tobacco: Never Substance Use Topics Alcohol use: Yes Comment: occassional Vaping/E-Cigarette Use Vaping/E-Cigarette Substances Vaping/E-Cigarette Devices Past Surgical History: Procedure Laterality Date COLONOSCOPY, DIAGNOSTIC (RECTUM) 12/31/2016 diverticulosis, repeat 10 yrs/COLONOSCOPY FLEXIBLE PROXIMAL DIAGNOSTIC performed by Suzanna Saucedo MD at END[facility]COPY [facility] CYSTOSCOPY 07-22-2015 OTHER (INFORMATION) 2006 colon polyps Past Medical History: Diagnosis Date Lupus erythematosus Patient Active Problem List Diagnosis ADVANCE DIRECTIVE INFORMATION Lupus erythematosus Epididymitis, bilateral Acute UTI Weak urinary stream Incomplete emptying of bladder 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 Exam conducted with a classification case manager present. Constitutional: General: He is not in acute distress. Appearance: Normal appearance. He is obese. He is not ill-appearing or toxic-appearing. HENT: Head: Normocephalic and atraumatic. Right Ear: External ear normal. Left Ear: External ear normal. Nose: Nose normal. Mouth/Throat: Mouth: Mucous membranes are moist. Cardiovascular: Pulses: Normal pulses. Heart sounds: Normal heart sounds. Pulmonary: Effort: Pulmonary effort is normal. Breath sounds: Normal breath sounds. Abdominal: Palpations: Abdomen is soft. Tenderness: There is no abdominal tenderness. Genitourinary: Comments: Partially buried phallus. Musculoskeletal: Cervical back: Normal range of motion and neck supple. Lymphadenopathy: Cervical: No cervical adenopathy. Skin: Coloration: Skin is not cyanotic or pale. Neurological: Mental Status: He is alert and oriented to person, place, and time. Psychiatric: Attention and Perception: Attention normal. Mood and Affect: Mood and affect normal. Cystoscopy Procedure Note: Patient was properly identified and appropriate consent was confirmed. Risks and benefits of the procedure were reviewed and the patient was prepped and draped in the standard fashion for the procedure. A well lubricated 16 [place] flexible cystoscope was introduced through the meatus into the urethra. Urethra demonstrated stricture disease and panurethral and open, able to be bypassed with scope without difficulties . Prostatic urethra demonstrated moderate lateral lobe prostatic obstruction and elevated bladder neck. Bladder neck was visualized and bladder was entered. Sterile saline irrigation was used to distend the bladder which was noted to have diffuse mucosal inflammation and a patulous detrusor with mobile debris with grade 3 trabeculation with cellules. [place] of urine taken forculture. Bladder was completely inspected including retroflexion of the scope. Ureteral orifices were noted to be in the normal anatomic position bilaterally. After this was completed the cystoscope was removed. Patient tolerated the procedure well without complications or difficulties. Boat Captain was present for entire procedure. Impression/Plan: 63-year-old male with stricture disease, detrusor decompensation, bladder outlet obstruction. Findings reviewed with the patient. Again, I suspect part of his difficulty is his obstruction at the level of the prostate. Unfortunately, I suspect his detrusor decompensation and urethral stricture disease will require continued catheterization at least for some time postoperatively. Risks and benefits of intervention are reviewed. Patient reports he now wishes to proceed with GreenLight vaporization of the prostate. Will tentatively schedule locally, informed consent obtained. Will cover with suppressive antibiotics if necessary if positive. Will see at the time of intervention. Above content is personally reviewed. Patient vocalizes good understanding of the treatment plan. Jayden Sen MD 11:57 AM 06/15/2024 documented in this encounter Nursing Notes * Renate Pritchard LPN - 06/15/2024 12:55 PM EDT Patient in office for cystoscopy. Consent signed. Patient's skin was prepped with hibiclens, and 2%lidocaine jelly was inserted into urethra for cystoscopy. Patient tolerated well. documented in this encounter Plan of Treatment Scheduled Orders Name Type Priority Associated Diagnoses Orde r Schedule CYSTOSCOPY Procedures Routine BPH with obstruction/lower urinary tract symptoms Incomplete emptying of bladder Detrusor muscle hypertonia Ordered: 06/15/2024 EKG EKG Routine BPH with obstruction/lower urinary tract symptoms Expected: 06/15/2024 (Approximate), Expires: 07/15/2025 XR CHEST 2 VIEWS Medical Imaging Routine BPH with obstruction/lower urinary tract symptoms Ordered: 06/15/2024 CBC Lab Routine BPH with obstruction/lower urinary tract symptoms Expected: 06/15/2024, Expires: 06/15/2025 BASIC METABOLIC PANEL Lab Routine BPH with obstruction/lower urinary tract symptoms Expected: 06/15/2024, Expires: 06/15/2025 CULTURE, URINE, QUANTITATIVE Lab Routine BPH with obstruction/lower urinary tract symptoms Expected: 07/06/2024, Expires: 06/15/2025 Scheduled Procedures Name Priority Associated Diagnoses Date/Ti [...] Incomplete emptying of bladder Incomplete bladder emptying Detrusor muscle hypertonia Hypertonicity of bladder Acute cystitis without hematuria Acute cystitis Other stricture of urethra in male [N35.819 (ICD-10-CM)] documented in this encounter Care Teams Gyroscope Technician Relationship Specialty Start Date End Date Sharyn Padilla MD [address] [place] [id number] PCP - General Family Medicine 06/15/24 documented as of this encounter
--- OUTSIDE RECORDS SUMMARY | 2024-06-26 23:45 | External Medical Summary | Summary of Care ---
Author Name Unknown Organization [facility] Address [address] [place] [address] Phone [phone] Care Team Providers Care Pharmacy Operations Specialist Name Role Phone Sharyn Padilla MD Primary Care Provider [phone] Reason for Visit * Reason Onset Date Comments Advice 06/16/2024 Encounter Details Date Type Department Care Team (Late st Contact Info) Description 06/16/2024 Telephone Urology, [facility] [address] [place] [address] Services, Scheduling [address] [place] [address] Advice Allergies No known active allergiesdocumented as of this encounter (statuses as of 06/17/2024) Medications Medication Sig Dispensed Refills Start Date [...] as of this encounter (statuses as of 06/17/2024) Active Problems Problem Noted Date Diagnosed Date [...] as of this encounter (statuses as of 06/17/2024) Social History Tobacco Use Types Packs/Day Years [...] encounter Miscellaneous Notes * Telephone Encounter - Chasity Blue OSA - 06/17/2024 2:55 PM EDT LMOM for patient making him aware that their are no sooner appointments at this time. * Telephone Encounter - Jolene Yanez OSA - 06/17/2024 10:08 AM EDT Edda checked and nothing sooner at [facility] either. * Telephone Encounter - Chasity Blue OSA - 06/17/2024 8:05 AM EDT No sooner date is available at [facility]. * Telephone Encounter - Renate Pritchard LPN - 06/16/2024 3:56 PM EDT Spoke with pt, aware to stay on tamsulosin. Patient needs catheter supplies. Leg bag, overnight bag, straps at nurse's station for patient pickup at his convenience. * Telephone Encounter - Jayden Sen MD - 06/16/2024 3:22 PM EDT Yes, continue tamsulosin. I suspect sooner surgery date is not available, schedule can be checked. Blake, DAVID * Telephone Encounter - Renate Pritchard LPN - 06/16/2024 3:[address] Sen: Spoke with patient. Patient asked if he should continue to take tamsulosin while he has the catheter? Scheduling - patient is asking if there is sooner availability for surgery either here or at [facility]. Thank you Kate * Telephone Encounter - Jayden Sen MD - 06/16/2024 2:38 PM EDT Recommend keeping catheter in until surgery if it is within the next 30 days. Antolin * Telephone Encounter - Renate Pritchard LPN - 06/16/2024 1:[address] Sen [facility] visit records scanned. Please advise on preferred timeframe for catheter. Thank you Kate * Telephone Encounter - Renate Pritchard LPN - 06/16/2024 11:14 AM EDT Spoke with pt. Unable to perform CIC yesterday. Patient went to [facility]. They placed 16 coudet indwelling. Patient states [facility] mentioned keeping catheter in until GLTURP scheduled 07/13/24. Records requested from Meri at [facility] med rec. * Telephone Encounter - Meri Dickens OSA - 06/16/2024 10:07 AM EDT Pt spouse Quita calling in stating that pt was seen yesterday and has a scope done and when he got home he was unable to cath himself so he ended up going to the ER at [facility] and they cathed pt. She states they received two calls this AM with no voicemail left. Wondering if Urology was trying to reachthem? Please advise documented in this encounter Plan of Treatment Upcoming Encounters Date Type Department Care Team (Latest Contact Info) Description 07/13/2024 9:45 AM EDT Hospital Encounter OR [facility], Operating Room [facility] [address] [place] [id number] Jayden Sen MD [address] [place] [address] 07/13/2024 9:45 AM EDT - 07/13/2024 11:05 AM EDT Surgery OR [facility], Operating Room [facility] [address] [place] [id number] Jayden Sen MD [address] [place] [address] LASER VAPORIZATION PROSTATE 07/20/2024 10:00 AM EDT Nurse Only Urology, [facility] [address] [place] [address] C[place]ar Nurse Urology Toni [address] [place] [address] 08/03/2024 2:45 PM EST Office Visit Urology, [facility] [address] [place] [address] Jayden Sen MD [address] [place] [address] Scheduled Procedures Name Priority Associated Diagnoses Date/Ti [...] filedocumented as of this encounter Care Teams Pharmacy Operations Specialist Relationship Specialty Start Date End Date Sharyn Padilla [facility] [place] [address] PCP - General Family Medicine 06/15/24 documented as of this encounter
--- OUTSIDE RECORDS SUMMARY | 2024-06-26 23:45 | External Medical Summary | Summary of Care ---
Author Name Unknown Organization [facility] Address [address] [facility] [place] [address] Phone [phone] Care Team Providers Care Warehouse Record Clerk Name Role Phone Sharyn Padilla MD Primary Care Provider [phone] Reason for Visit * Reason Comments Cystoscopy Encounter Details Date Type Department Care Team (Latest Contact Info) Description 06/15/2024 1:00 PM EDT Procedure Only Urology, [facility] 132 [facility] [place] [address] Jayden Sen MD [address] [place] [address] BPH with obstruction/lower urinary tract [...] Sen MD - 06/15/2024 1:00 PM EDT [id number] PCP: [place] [address] [phone] Ousmane Paul is a 63 year old [...] performed by Suzanna Saucedo MD at [facility]COPY [facility] CYSTOSCOPY 07-22-2015 OTHER (INFORMATION) 2006 colon polyps [...] Nursing note reviewed. Exam conducted with a unarmed security guard present. Constitutional: General: He is not in [...] for the procedure. A well lubricated 16 [place] flexible cystoscope was introduced through the meatus [...] the procedure well without complications or difficulties. Bounty Hunter was present for entire procedure. Impression/Plan: 63-year-old [...] Operating Room [facility] [address] [place] [address] Jayden Sen MD [address] [place] [address] 07/20/2024 10:00 AM EDT [facility] [address] [place] [address] Lindsey, Nurse Urology Toni [address] [place] [address] 08/03/2024 2:45 PM EST Office Visit Urology, [facility] [address] [place] [address] Jayden Sen MD [address] [place] [address] Pending Results Name Type Priority Associated Diagnoses Date /Time XR CHEST 2 VIEWS Medical Imaging Routine BPH with obstruction/lower urinary tract symptoms 06/15/2024 2:08 PM EDT BASIC METABOLIC PANEL Lab Routine BPH with obstruction/lower urinary tract symptoms 06/15/2024 1:55 PM EDT Scheduled Orders Name Type Priority Associated Diagnoses Orde r Schedule CYSTOSCOPY Procedures Routine BPH with obstruction/lower urinary tract symptoms Incomplete emptying of bladder Detrusor muscle hypertonia Ordered: 06/15/2024 EKG EKG Routine BPH with obstruction/lower urinary tract symptoms Expected: 06/15/2024 (Approximate), Expires: 07/15/2025 BASIC METABOLIC PANEL Lab Routine BPH with [...] Not on filedocumented as of this encounter Results * (ABNORMAL) CBC (06/15/2024 1:55 PM EDT) Pathologist [facility] WBC 7.47 4.00 - 10.80 K/uL 06/15/2024 [...] Sen MD LAB BLOOD [facility] 57-10 [address] [facility] [place] [address] documented in this encounter Visit Diagnoses Diagnosis BPH with obstruction/lower urinary tract symptoms- Primary Hypertrophy of prostate with urinary obstruction and other lower urinary tract symptoms (LUTS) Incomplete emptying of bladder Incomplete bladder emptying Detrusor muscle hypertonia Hypertonicity of bladder Acute cystitis without hematuria Acute cystitis Other stricture of urethra in male [N35.819 (ICD-10-CM)] BPH with obstruction/lower urinary tract symptoms- Primary Hypertrophy of prostate with urinary obstruction and other lower urinary tract symptoms (LUTS) documented in this encounter Care Teams Warehouse Record Clerk Relationship Specialty Start Date End Date Sharyn Padilla MD [address] [place] [address] PCP - General Family Medicine 06/15/24 documented as of this encounter
--- OUTSIDE RECORDS SUMMARY | 2024-06-26 23:45 | External Medical Summary | Summary of Care ---
Author Name Unknown Organization [facility] Address [address] [place] [address] Phone [phone] Care Team Providers Care Drum Sander Setter Name Role Phone Sharyn Padilla MD Primary Care Provider [phone] Reason for Visit * Reason Onset Date Comments Advice 06/16/2024 Encounter Details Date Type Department Care Team (Late st Contact Info) Description 06/16/2024 Telephone Urology, [facility] 132 [place] [address] Services, Scheduling [address] [place] [address] Advice Allergies No known active allergiesdocumented as [...] encounter Miscellaneous Notes * Telephone Encounter - Jolene Yanez OSA - 06/17/2024 10:08 AM EDT Edda checked and nothing sooner at [facility] either. * Telephone Encounter - Chasity Blue OSA - 06/17/2024 8:05 AM EDT No sooner date is available at [facility]. * Telephone Encounter - Renate Pritchard [...] is not available, schedule can be checked. Thx, HM * Telephone Encounter - Renate Pritchard LPN - 06/16/2024 3:[address] Sen: Spoke with patient. Patient asked if he should continue to take tamsulosin while he has the catheter? Scheduling - patient is asking if there is sooner availability for surgery either here or at [facility]. Thank you Kate * Telephone Encounter - Jayden Sen MD - 06/16/2024 2:38 PM EDT Recommend keeping catheter in until surgery if it is within the next 30 days. Thanks, * Telephone Encounter - Renate Pritchard LPN - 06/16/2024 1:[address] Sen [facility] visit records scanned. Please advise on preferred timeframe for catheter. Thank you Kate * Telephone Encounter - Renate Pritchard LPN - 06/16/2024 11:14 AM EDT Spoke with pt. Unable to perform CIC yesterday. Patient went to [facility]. They placed 16 coudet indwelling. Patient states [facility] mentioned keeping catheter in until TUR scheduled 07/13/24. Records requested from Meri at [facility] med rec. * Telephone Encounter - Meri Dickens OSA - 06/16/2024 10:07 AM EDT Pt spouse Quita calling in stating that pt was seen yesterday and has a scope done and when he got home he was unable to cath himself so he ended up going to the ER at [facility] and they cathed pt. She states they received two calls this AM with no voicemail left. Wondering if Urology was trying to reachthem? Please advise documented in this encounter Plan of Treatment Upcoming Encounters Date Type Department Care Team (Latest Contact Info) Description 07/13/2024 9:45 AM EDT Hospital Encounter OR [facility], Operating Room [facility] [address] [place] [address] Jayden Sen MD [address] [place] [address] 07/13/2024 9:45 AM EDT - 07/13/2024 11:05 AM EDT Surgery OR [facility], Operating Room [facility] [address] [place] [address] Jayden Sen MD [address] [place] [address] LASER VAPORIZATION PROSTATE 07/20/2024 10:00 AM EDT [facility] [address] [place] [address] [place]ar Nurse Urology Toni [address] [place] [address] 08/03/2024 2:45 PM EST Office Visit Urology, [facility] [address] [place] [address] Jayden Sen MD [address] [place] [address] Scheduled Procedures Name Priority Associated Diagnoses Date/Ti [...] filedocumented as of this encounter Care Teams Drum Sander Setter Relationship Specialty Start Date End Date Sharyn Padilla MD [address] [place] [address] PCP - General Family Medicine 06/15/24 documented as of this encounter
[2024-06-27] MEDS: PIPERACILLIN/TAZOBACTAM 4.5 GM/100 ML BAG IV SCH (00:51)
[2024-06-27] MEDS: KETOROLAC TROMETHAMINE 15 MG/ML VIAL IV PRN (03:59)
[2024-06-27 07:56] LABS: Basophils # (auto) 0.02 K/uL (0.00-0.20); Basophils % (auto) 0.2 %; Eosinophils # (auto) 0.26 K/uL (0.00-0.50); Eosinophils % (auto) 3.2 %; Hematocrit (blood only) 35.1 % (42.0-52.0); Hemoglobin 11.1 g/dl (14.0-18.0); Immature Granulocytes # (auto) 0.06 K/uL (0.01-0.20); Immature Granulocytes % (auto) 0.7 %; Lymphocytes # (auto) 0.87 K/uL (1.20-3.40); Lymphocytes % (auto) 10.7 %; Mean Corpuscular Hemoglobin 28.2 pg (25.0-34.0); Mean Corpuscular Hgb Conc 31.6 g/dL (32.0-36.0); Mean Corpuscular Volume 89.1 fL (80.0-100.0); Mean Platelet Volume 10.2 fL (9.4-12.4); Monocytes # (auto) 0.88 K/uL (0.11-0.59); Monocytes % (auto) 10.8 %; Neutrophils # (auto) 6.03 K/uL (1.40-6.50); Neutrophils % (auto) 74.4 %; Platelet Count 220 K/uL (130-400); RDW Coefficient of Variation 12.6 % (11.5-14.5); Red Blood Count 3.94 M/uL (4.70-6.10); White Blood Count 8.12 K/ul (4.8-10.8)
[2024-06-27 08:35] LABS: Calcium 8.2 mg/dl (8.6-10.3); Potassium 3.8 mmol/L (3.5-5.1)
[2024-06-27 08:40] LABS: BUN Creatinine Ratio 13.2 (10-20); Creatinine Clr Calc Pharmacy 86.8 ml/min
[2024-06-27] MEDS ORDERED: HYDROXYCHLOROQUINE SULFATE 200 MG TAB PO SCH (09:00)
[2024-06-27] MEDS: DOXYCYCLINE HYCLATE 100 MG CAP PO SCH (10:49)
[2024-06-27] MEDS: FINASTERIDE 5 MG TAB PO SCH (10:50)
[2024-06-27] MEDS: HYDROXYCHLOROQUINE SULFATE 200 MG TAB PO SCH (10:50)
[2024-06-27] MEDS: TAMSULOSIN HCL 0.4 MG CAP PO SCH (10:51)
[2024-06-27] MEDS: PROPRANOLOL HCL LA 80 MG CAPCR PO SCH (10:51)
[2024-06-27] MEDS: ENOXAPARIN INJ 40 MG/0.4 ML SYR SQ SCH (11:05)
--- NOTE | 2024-06-27 12:10 | Urology Consultation ---
Date of Consultation June 27, 2024 Assessment & Plan (1) Cellulitis of scrotum: (2) BPH (benign prostatic hyperplasia): (3) Urinary retention: (4) Cystitis: (5) Hematuria: (6) Discoid lupus erythematosus: Plan New consultation on patient with scrotal infection likely cellulitis possible developing abscess. Patient had been on antibiotics. Have been admitted with IV broad-spectrum antibiotics and supportive care. Patient had undergone scrotal ultrasound and CT of the pelvis. Appears to have significant inflammation with possible developing fluid collection within the scrotum no air seen on CT imaging or on ultrasound. On examination patient had significant inf lammatory and erythematous changes no severe induration. No development of fluctuance. Patient also having retention issues with catheter in place. Had episodes of cystitis and hematuria. Patient had been placed on broad-spectrum antibiotics and has been undergoing supportive care. Patient independently assessed, examined, interviewed, and evaluated. Patient's vitals and labs were all reviewed. No favor. Vitals are stable oxygen saturation 98% on room air. White count was 8.12 which is improved from 10.46. Creatinine was 1.21. Hemoglobin 11.1. Pertinent values in the HPI and plan section. Imaging was reviewed interpreted by myself. CT and ultrasound were reviewed interpreted by myself. Patient does appear to have significant inflammatory changes likely infectious issues in the scrotum especially the right hemiscrotum. Does have possible early development of abscess versus active infection. Agree with read. Vitals were reviewed. Discussed findings extensively with patient and family. Reviewed with emergency room provider yesterday as well as extensive review of the notes from the consulting physicians/team. Patient's complicated medical and surgical history was reviewed and summarized above. Patient's surgical, medical, social, and family history were all reviewed with pertinent values as above. Discussed patient's current diagnosis as well as concerns and issues. Reviewed different options moving forward. Discussed potential risks and benefits as well as possible options and concerns. Reviewed potential surgical options and interventions. Discussed potential issues and concerns related to intervention. Risk and benefits were discussed extensively with patient and any available family. Discussed potential risks related to anesthesia. Discussed risks of bleeding infection and injury. Extensive review of the patient's past medical history complicated medical and surgical history and other issues. Discussed patient's history of lupus with a ctive treatment. Discussed patient's issues with incomplete emptying. Patient has been tolerating catheter. Reviewed options moving forward including possible excision and drainage versus other options. Discussed supportive care and broad-spectrum IV antibiotics. Discussed current examination. Discussed need for wound care management if infection does not improve or resolve or if a drainable area of fluid collection develops. Discussed if patient does develop significant fever chills or signs of sepsis need for possible need of urgent intervention. Discussed options moving forward. Risk and benefits were extensively reviewed with patient. Reviewed options moving forward. Discussed possible options for bedside versus operative intervention. Patient's complicated medical and surgical history is reviewed and surmise above all imaging was reviewed interpreted by myself all labs and vitals were reviewed. Will plan to continue with close monitoring. If need for urgent or emergent intervention can move forward if patient wishes to proceed with bedside attempted drainage can also consider moving forward with this. Will plan to continue to monitor agree with plans for broad-spectrum antibiotics. Agree with plans for continued supportive care monitoring. Discussed continued utilization of catheter with attempted removal after patient's resolution of issues as well as further workup and assessment as outpatient. Will plan NPO at midnight with possible bedside drainage vs OR procedure tomorrow. History of Present Illness Attending Physician: Elias Lucio MD History of Present Illness New consultation for patient with scrotal infection/cellulitis with possible developing abscess with increasing pain, discomfort, and ill feelings. Patient developed increasing issues with scrotal swelling discomfort redness and irritation with discomfort radiating into flank going down and radiating into groin and back in waves comes and goes. Can be severe at times. Discussed and reviewed patient's family history for any history of issues, infections, and disease. Also, discussed patient's medical/surgery history especially related to any history of urinary issues or stone disease. Patient had been on antibiotics. Had been escalated to broad-spectrum IV antibiotic coverage. Had undergone imaging in the ER with reevaluation. Found to have significant inflammatory changes and possibly developing abscess within the scrotum no air seen within the potential fluid collection. Severe cellulitis versus developing abscess Patient was admitted and is undergoing observation with broad spectrum IV antibiotics. Allergies Allergy/AdvReac Type Severity Reaction Status Date / Time No Known Allergies Allergy Verified 06/26/24 18:14 Home Medications Medication Instructions Recorded Confirmed Type finasteride 5 mg tablet (Proscar) 5 mg PO QAM 08/09/18 06/26/24 History tamsulosin 0.4 mg capsule (Flomax) 0.4 mg PO DAILY #7 caps 06/16/22 06/26/24 Rx Aries Almendarez #1 ea 07/05/22 05/21/24 Rx hydroxychloroquine 200 mg tablet 400 mg (2 x 200 mg) PO DAILY #60 11/25/23 06/26/24 Rx (Plaquenil) tabs propranolol 80 mg capsule,24 80 mg PO DAILY #30 caps 05/18/24 06/26/24 Rx hr,extended release cephalexin 500 mg capsule 500 mg PO DIRECTED 06/26/24 06/26/24 History cetirizine 10 mg tablet 10 mg PO DAILY PRN ALLERGIES 06/26/24 06/26/24 History naproxen 500 mg tablet 500 mg PO BID PRN Pain (Scale 06/26/24 06/26/24 History Score 1-3) Patient History Medical History Essential tremor On propranolol, follows with [facility]- last seen 11/10/21 Noted to bilateral hands Encounter for pre-operative examination History of herniated intervertebral disc NO SURGERY REQUIRED Lumbar spine ( right side) Surgical History S/P right knee arthroscopy History of open reduction and internal fixation (ORIF) procedure RT ANKLE History of colonoscopy History of tooth extraction History of tonsillectomy Family History Brother No problems noted. Brother Family history of diabetes mellitus Sister Family history of diabetes mellitus Other No family history of adverse response to anesthesia No pertinent family history in first degree relatives Social History Smoking Status: Never smoker Cigarettes Per Day: 1 pack per month for about 3 years; Second Hand Exposure: No; Do You Dip or Chew Tobacco: No; Tobacco Cessation Education Requested by Patient: No Hx Alcohol Use: No Hx Substance Use: No Preferred Language: [place] Islander Communication Ability: Effective Customer Operations Representative Required: No Beliefs That Will Affect Care: None marital status: Current Living Situation: Spouse Other Information That Helps Us Care for You: No Feels Safe at Home: Yes Safety Concerns: Feels Safe At This Time Assistive Devices: None Review of Systems Review of Systems: All systems reviewed & are unremarkable except as noted in HPI & below Physical Exam Physical Exam: General: Alert and oriented x 3 in no acute distress. Obesity. HEENT: Normocephalic Atraumatic. Inspection normal. Cranial Nerves 2-12 Grossly intact. Nares are clear. Neck is supple. Normal inspection of face. Normal inspection of neck. Neurologic: No deficits on inspection. Baseline for motor function and sensory. Psychologic: Normal affect. Respiratory: Nonlabored. No use of accessory muscles. No tachypnea or dyspnea. Cardiovascular: No tachycardia Skin: [place] and Dry. No rashes or visible lesions. Extremities: Moving without issues. No motor deficits on inspection Lymphatics: No edema Abdomen: Obese. Soft Non-distended. No rebound or guarding. : Scrotal edema with inflammation and erythema. No significant induration. No significant fluctuance. Fish catheter in place draining clear yellow urine Results & Data Vital Signs (Past 12 Hours) Vital Signs Temp Pulse Pulse Resp BP BP BP 06/27/24 10:23 36.8 C 62 18 134/83 06/27/24 07:39 36.8 C 67 17 130/79 06/27/24 05:49 06/27/24 05:20 36.7 C 73 20 139/86 06/27/24 03:58 67 20 125/80 06/27/24 03:00 68 18 139/87 06/27/24 03:00 68 18 139/87 06/27/24 02:00 58 L 18 116/67 06/27/24 01:00 61 18 128/82 Pulse Ox O2 Del Method 06/27/24 10:23 98 Room Air 06/27/24 07:39 97 Room Air 06/27/24 05:49 Room Air 06/27/24 05:20 100 Room Air 06/27/24 03:58 97 Room Air 06/27/24 03:00 97 Room Air 06/27/24 03:00 97 Room Air 06/27/24 02:00 97 06/27/24 01:00 97 PG Care Time/CCT Total # of Minutes Spent Total Time Spent with Patient: Total time spent is greater than 50% in coordination of care (as documented) at patient's floor/unit and/or counseling patient: Coding Level of Care Code 71043 IN/OBS CONSULT LVL 5,80M Diagnoses Cellulitis of scrotum N49.2 BPH (benign prostatic hyperplasia) N40.0 Urinary retention R33.9 Cystitis N30.90 Hematuria R31.9 Discoid lupus erythematosus L93.0
--- NOTE | 2024-06-27 14:18 | Hospitalist Progress Note ---
Date of Service June 27, 2024 Assessment & Plan (1) Cellulitis of scrotum: (2) Abscess of scrotum: (3) BPH (benign prostatic hyperplasia): (4) Essential tremor: Plan: Assessment and plan per Dr Martinez. See addendum. Pt follows with PCP BRENTON Gallardo Admission and Anticipated Discharge Date Admission Date: June 26, 2024 Subjective 06/27/2024 The patient was seen and examined in telemetry unit He has been complaining of pain in the scrotum mostly on the right side associated with increasing swelling Denies any fever and/or chills and no nausea and/or vomiting Review of Systems Review of Systems: all systems reviewed and are unremarkable except as noted below Physical Exam Physical Exam: Lying in bed without any acute distress Constitutional: well developed, well nourished and + ill appearing Eyes: PERRL, conjunctivae normal, anicteric sclerae ENMT: external ear and nose normal, oropharynx normal Neck: trachea midline, no thyromegaly Respiratory: no respiratory distress Auscultation: lungs clear to auscultation bilaterally Cardiovascular: Rate/Rhythm: regular rate and regular rhythm; not tachycardic Heart Sounds: normal S1 and normal S2; no murmur Extremities: no edema Gastrointestinal (Abdomen): Inspection/Auscultation: normal bowel sounds; abdomen not distended Percussion/Palpation: abdomen soft; abdomen nontender Musculoskeletal: no acute arthritis involving any of the joint Neurologic: plantar reflexes intact bilaterally and moves all extremities; no focal motor deficits Psychiatric: A+Ox3, euthymic affect Genitourinary: + hydrocele ( left) and + scrotal swelli ng ( right with increase in tenderness and local temperature) Results & Data Results & Data Vital Signs (Past 12 Hours) Vital Signs Temp Pulse Resp BP BP Pulse Ox O2 Del Method 06/27/24 10:23 36.8 C 62 18 134/83 98 Room Air 06/27/24 07:39 36.8 C 67 17 130/79 97 Room Air 06/27/24 05:49 Room Air 06/27/24 05:20 36.7 C 73 20 139/86 100 Room Air 06/27/24 03:58 67 20 125/80 97 Room Air 06/27/24 03:00 68 18 139/87 97 Room Air 06/27/24 03:00 68 18 139/87 97 Room Air
--- NOTE | 2024-06-27 14:22 | Hospitalist Progress Note ---
Date of Service June 27, 2024 Assessment & Plan (1) Abscess of scrotum: Plan: Right scrotal abscess- changes have been going on for the last 1 week or so Ultrasound confirmed abscess on the right side without involvement of the testes on either side Has been getting intravenous Zosyn and doxycycline Appreciate urology input and recommendation for proposed I&D tomorrow will continue current management Hydrocele on the left side Has scrotal swelling on the left as well Does not seems to be infected Will await urologist recommendation (2) Cellulitis of scrotum: (3) BPH (benign prostatic hyperplasia): (4) Essential tremor: Plan: Assessment and plan per Dr Martinez. See addendum. Pt follows with PCP BRENTON Gallardo Plan Other medical conditions remained stable as documented in H&P Admission and Anticipated Discharge Date Admission Date: June 26, 2024 Subjective 06/27/2024 The patient was seen and examined in telemetry unit He has been complaining of pain in the scrotum mostly on the right side associated with increasing swelling Denies any fever and/or chills and no nausea and/or vomiting Review of Systems Review of Systems: all systems reviewed and are unremarkable except as noted below Physical Exam Physical Exam: Lying in bed without any acute distress Constitutional: well developed, well nourished and + ill appearing Eyes: PERRL, conjunctivae normal, anicteric sclerae ENMT: external ear and nose normal, oropharynx normal Neck: trachea midline, no thyromegaly Respiratory: no respiratory distress Auscultation: lungs clear to auscultation bilaterally Cardiovascular: Rate/Rhythm: regular rate and regular rhythm; not tachycardic Heart Sounds: normal S1 and normal S2; no murmur Extremities: no edema Gastrointestinal (Abdomen): Inspection/Auscultation: normal bowel sounds; abdomen not distended Percussion/Palpation: abdomen soft; abdomen nontender Musculoskeletal: no acute arthritis involving any of the joint Neurologic: plantar reflexes intact bilaterally and moves all extremities; no focal motor deficits Psychiatric: A+Ox3, euthymic affect Genitourinary: + hydrocele ( left) and + scrotal swelli ng ( right with increase in tenderness and local temperature) Results & Data Results & Data Vital Signs (Past 12 Hours) Vital Signs Temp Pulse Resp BP BP Pulse Ox O2 Del Method 06/27/24 10:23 36.8 C 62 18 134/83 98 Room Air 06/27/24 07:39 36.8 C 67 17 130/79 97 Room Air 06/27/24 05:49 Room Air 06/27/24 05:20 36.7 C 73 20 139/86 100 Room Air 06/27/24 03:58 67 20 125/80 97 Room Air 06/27/24 03:00 68 18 139/87 97 Room Air 06/27/24 03:00 68 18 139/87 97 Room Air Laboratory Results Short CBC 06/26/24 06/27/24 Range/Units 15:49 06:54 WBC 10.46 8.12 (4.8-10.8) K/ul Hgb 13.5 L 11.1 L (14.0-18.0) g/dl Hct 41.5 L 35.1 L (42.0-52.0) % Plt Count 261 220 (130-400) K/uL BMP 06/26/24 06/27/24 15:49 06:54 Sodium 136 138 Potassium 4.2 3.8 Chloride 100 104 Carbon Dioxide 29 28 BUN 17 16 Creatinine 0.99 1.21 Glucose 82 100 H Calcium 9.3 8.2 L Liver Function 06/26/24 Range/Units 15:49 Total Bilirubin 0.5 (0.2-1.0) mg/dl AST 21 (13-39) U/L ALT 30 (7-52) U/L Alkaline Phosphatase 75 (34-104) U/L Albumin 4.0 (3.4-5.0) gm/dl Urine 06/26/24 Range/Units 18:49 Urine Color Yellow Urine Appearance Clear (Clear) Urine pH 5.5 (4.5-7.5) Ur Specific [place] > 1.045 H (1.000-1.030) Urine Protein Negative (Negative) Urine Glucose (UA) Negative (Negative) Medications Administered Current Inpatient Medications Acetaminophen (Acetaminophen 325 Mg Tab) 650 mg PO QID PRN PRN Reason: pain/fever Stop: 07/26/24 19:51 Doxycycline Hyclate (Doxycycline Hyclate 100 Mg Cap) 100 mg PO BID FABIO Stop: 07/04/24 08:59 Last Admin: 06/27/24 10:49 Dose: 100 mg Enoxaparin Sodium (Enoxaparin Inj 40 Mg/0.4 Ml Syr) [facility] [place] Stop: 07/27/24 08:59 Last Admin: 06/27/24 11:05 Dose: 40 mg Finasteride (Finasteride 5 Mg Tab) [facility] [place] Stop: 07/27/24 08:59 Last Admin: 06/27/24 10:50 Dose: 5 mg Hydroxychloroquine Sulfate (Hydroxychloroquine Sulfate 200 Mg Tab) 400 mg PO DAILY [facility] Stop: 07/27/24 08:59 Last Admin: 06/27/24 10:50 Dose: 400 mg Piperacillin Sod/Tazobactam Sod (Zosyn) 4.5 gm in 100 mls @ 25 mls/hr IV Q8H [facility]; Protocol Stop: 07/04/24 00:00 Last Admin: 06/27/24 10:48 Dose: 25 mls/hr Ketorolac Tromethamine (Ketorolac Tromethamine 15 Mg/Ml Vial) 15 mg IV Q6H PRN PRN Reason: Pain Stop: 07/01/24 19:51 Last Admin: 06/27/24 03:59 Dose: 15 mg Oxycodone HCl (Oxycodone Hcl Ir 5 Mg Tab (Immediate Release)) 5 - 10 mg PO QID PRN PRN Reason: Pain Stop: 07/10/24 19:51 Last Admin: 06/27/24 12:31 Dose: 10 mg Propranolol HCl (Propranolol Hcl La 80 Mg Capcr) 80 mg PO [facility] Stop: 07/27/24 08:59 Last Admin: 06/27/24 10:51 Dose: 80 mg Tamsulosin HCl (Tamsulosin Hcl 0.4 Mg Cap) 0.4 mg PO [facility] Stop: 07/27/24 08:59 Last Admin: 06/27/24 10:51 Dose: 0.4 mg
[2024-06-28 07:50] LABS: Basophils # (auto) 0.03 K/uL (0.00-0.20); Basophils % (auto) 0.4 %; Eosinophils # (auto) 0.24 K/uL (0.00-0.50); Eosinophils % (auto) 3.4 %; Hematocrit (blood only) 36.5 % (42.0-52.0); Hemoglobin 11.9 g/dl (14.0-18.0); Immature Granulocytes # (auto) 0.03 K/uL (0.01-0.20); Immature Granulocytes % (auto) 0.4 %; Lymphocytes # (auto) 0.99 K/uL (1.20-3.40); Lymphocytes % (auto) 13.9 %; Mean Corpuscular Hemoglobin 28.7 pg (25.0-34.0); Mean Corpuscular Hgb Conc 32.6 g/dL (32.0-36.0); Mean Platelet Volume 10.2 fL (9.4-12.4); Monocytes # (auto) 0.88 K/uL (0.11-0.59); Monocytes % (auto) 12.4 %; Neutrophils # (auto) 4.93 K/uL (1.40-6.50); Neutrophils % (auto) 69.5 %; Platelet Count 233 K/uL (130-400); RDW Coefficient of Variation 12.6 % (11.5-14.5); RDW Standard Deviation 40.4 fL (36.4-46.3); Red Blood Count 4.15 M/uL (4.70-6.10)
[2024-06-28 08:11] LABS: BUN Creatinine Ratio 11.5 (10-20); Calcium 8.7 mg/dl (8.6-10.3); Potassium 3.8 mmol/L (3.5-5.1)
--- NOTE | 2024-06-28 10:13 | Urology Progress Note ---
Date of Service June 28, 2024 Assessment & Plan (1) Cellulitis of scrotum: (2) BPH (benign prostatic hyperplasia): (3) Urinary retention: (4) Cystitis: (5) Hematuria: (6) Discoid lupus erythematosus: Plan Patient with scrotal infection likely cellulitis possible developing abscess. Issues worsened overnight. Patient condition otherwise has/had been stable. Patient had been on antibiotics. Have been admitted with IV broad-spectrum antibiotics and supportive care. Findings concerning for developing abscess with minor spontaneous drainage. Extensively reviewed options. Discussed wound. More concerning and now drainable fluid collection while on abx. No fevers. No severe issues. No necrosis or skin breakdown. Significant edema. Patient was agreeable for bedside procedure. See below for procedure note for incision and drainage of abscess. Abscess was able to be drained. Was aspirated and swabbed and sent for culture. Wound was packed. Will need wound care referral for inpatient and outpatient management. Plan to maintain catheter. Risks and benefits discussed at length for procedure. These include bleeding, infection, injury to surrounding tissues or organs, and risks associated with anesthetic. Patient states understanding and agrees to proceed. Agreed to bedside procedure under local. Procedure Note: Incision, Aspiration, and drainage of Scrotal abscess. Discussed with patient risks, benefits, and alternatives A discussion was had about all possible complications, including: infection, bleeding, injury to surrounding structures, and allergic reaction. Written consent was obtained prior to the procedure Prep The site was prepped and the patient draped in the standard fashion. Procedure The scrotum was anesthetized with 1% Lidocaine The cord was anesthetized on the right with 1% Lidocaine The abscess was assessed. The area of flucuance was just right of the midline with two areas of spontaneous drainage. The area was prepped with betadine. The skin around the area was anestized as well as a cord block on the right. Approx 3 cc of purulent fluid was able to be aspirated from the cavity. This was sent for microanalysis. A 15 blade scalpel was then used to incise the skin over the cavity. The two areas of spontanous drainage were able to be incised together. Two abscess cavities were appreciated. A large amount of purulent fluid with likely hematoma material was then drained. A swab was completed and sent for microanalysis. The cavity was probed. Multiple loculations were broken up. Breaking up loculations was able to free the two cavities into one wound. The total wound cavity was large approx 7.3 cm deep without major tracking posteriorly or superiorly. The cavity was approx 4.3 cm x 3.9 cm x 7.3 cm. The skin incision was 2.8 cm x 0.2 cm. The cavity did not appear to enter the hemiscrotum and was largely in the subcutaneous tissues. There was an additional area of induration at the base of the scrotum but no other fluctuant or drainable areas. The wound was flushed copiously. No necrosis was discovered. The skin edges appeared to be bleeding without signs of necrosis. Some nonviable debris vs tissue was able to be cleared from the wound. No severe bleeding. The wound was then packed with 1 inch iodoform packing with a single piece folded and packed with both ends out of the wound. The patient was further cleaned. The area was cleaned. Bandages were placed on the wound/incision. Patient Status: Tolerated well Complications: No Complications Will need packing changed tomorrow. Will need wound care and monitoring. 4x4 dressings and ABD pads can be changed as needed. Admission and Anticipated Discharge Date Admission Date: June 26, 2024 Subjective Patient admitted with scrotal edema and possible cellulitis vs abscess. Had retention issues. Follows with Dr. Sen of [facility]. Patient is afebrile. Did develop drainage from scrotum. Has been undergoing IV abx and supportive care with oral medications, IV medications, IV fluids, and oral intake. No severe changes. Has not had considerable increase in pain or major issues. Has not developed severe vomiting or other issues. Has not experienced fever or chills. Has been tolerating oral medications. Is tolerating fluids. Has tolerated catheter. Scrotum has become more bothersome. Fluid drainage appears purulent. Has not had severe pain in the back and flank. Does have occasional burning and irritation. No severe episodes or major changes. Review of Systems Review of Systems: All systems reviewed & are unremarkable except as noted in HPI & below Physical Exam Physical Exam: General: Alert in no acute distress. Obese HEENT: Normocephalic Atraumatic. Inspection normal. Cranial Nerves 2-12 Grossly intact. Normal inspection of face. Normal inspection of neck. Psychologic: Normal affect. Respiratory: Nonlabored. No use of accessory muscles. No tachypnea or dyspnea. Cardiovascular: No tachycardia Skin: [place] and Dry. No rashes or visible lesions. Extremities/Lymphatics: No edema Abdomen: Soft Non-distended. No rebound or guarding. : Fish cath in place. Significant scrotum edema. Drainage and fluctuance with some induration around the likely developing abscess. Results & Data Vital Signs (Past 12 Hours) Vital Signs Temp Pulse Resp BP Pulse Ox O2 Del Method 06/28/24 07:46 36.8 C 67 18 138/86 96 Room Air PG Care Time/CCT Total # of Minutes Spent Total Time Spent with Patient: Total time spent is greater than 50% in coordination of care (as documented) at patient's floor/unit and/or counseling patient: Coding Level of Care Code 88270 SUB INP/OBS CARE 3/50MIN Diagnoses Cellulitis of scrotum N49.2 BPH (benign prostatic hyperplasia) N40.0 Urinary retention R33.9 Cystitis N30.90 Hematuria R31.9 Discoid lupus erythematosus L93.0 CPT Codes DRAINAGE OF SCROTUM ABSCESS - 04439 ([id number]) INCISION DRAINAGE SKIN ABSCESS COMPLICATED/MULTIPLE - 76428 ([id number])
[2024-06-28] MEDS: LIDOCAINE 2% LOCAL 50 ML VIAL ONE (10:43)
[2024-06-28] MEDS: LIDOCAINE 1% LOCAL 20 ML VIAL ONE (10:43)
--- NOTE | 2024-06-28 15:03 | Hospitalist Progress Note ---
Date of Service June 28, 2024 Assessment & Plan (1) Abscess of scrotum: Plan: Right scrotal abscess- changes have been going on for the last 1 week or so Ultrasound confirmed abscess on the right side without involvement of the testes on either side Has been getting intravenous Zosyn and doxycycline Appreciate urology input and recommendation for proposed I&D tomorrow Status post I&D of right scrotal abscess On 06/28/2024 We will ask for wound care management Continue intravenous antibiotic for now Hydrocele on the left side Has scrotal swelling on the left as well Does not seems to be infected Will await urologist recommendation (2) Cellulitis of scrotum: (3) BPH (benign prostatic hyperplasia): (4) Essential tremor: Plan: Assessment and plan per Dr Martinez. See addendum. Pt follows with PCP BRENTON Gallardo Plan Other medical conditions remained stable as documented in H&P Admission and Anticipated Discharge Date Admission Date: June 26, 2024 Subjective 06/27/2024 The patient was seen and examined in telemetry unit He has been complaining of pain in the scrotum mostly on the right side associated with increasing swelling Denies any fever and/or chills and no nausea and/or vomiting 06/28/2024 The patient was seen and examined in telemetry unit Drain is noted from the right scrotal swelling since last evening Patient remains stable and will have an I&D sometime today Denies any fever and or chills and the pain is controlled Review of Systems Review of Systems: all systems reviewed and are unremarkable except as noted below Physical Exam Physical Exam: Lying in bed without any acute distress Constitutional: well developed, well nourished and + ill appearing Eyes: PERRL, conjunctivae normal, anicteric sclerae ENMT: external ear and nose normal, oropharynx normal Neck: trachea midline, no thyromegaly Respiratory: no respiratory distress Auscultation: lungs clear to auscultation bilaterally Cardiovascular: Rate/Rhythm: regular rate and regular rhythm; not tachycardic Heart Sounds: normal S1 and normal S2; no murmur Extremities: no edema Gastrointestinal (Abdomen): Inspection/Auscultation: normal bowel sounds; abdomen not distended Percussion/Palpation: abdomen soft; abdomen nontender Neurologic: plantar reflexes intact bilaterally and moves all extremities; no focal motor deficits Psychiatric: A+Ox3, euthymic affect Genitourinary: + hydrocele ( left) and + scrotal swelli ng ( right with increase in tenderness and local temperature) Results & Data Results & Data Vital Signs (Past 12 Hours) Vital Signs Temp Pulse Resp BP Pulse Ox O2 Del Method 06/28/24 14:19 37.3 C 59 L 16 98/69 L 97 Room Air 06/28/24 07:46 36.8 C 67 18 138/86 96 Room Air Laboratory Results Short CBC 06/28/24 Range/Units 07:06 WBC 7.10 (4.8-10.8) K/ul Hgb 11.9 L (14.0-18.0) g/dl Hct 36.5 L (42.0-52.0) % Plt Count 233 (130-400) K/uL BMP 06/28/24 07:06 Sodium 139 Potassium 3.8 Chloride 104 Carbon Dioxide 30 BUN 13 Creatinine 1.13 Glucose 91 Calcium 8.7 Medications Administered Current Inpatient Medications Acetaminophen (Acetaminophen 325 Mg Tab) 650 mg PO QID PRN PRN Reason: pain/fever Stop: 07/26/24 19:51 Doxycycline Hyclate (Doxycycline Hyclate 100 Mg Cap) 100 mg PO BID [facility] Stop: 07/04/24 08:59 Last Admin: 06/28/24 08:54 Dose: 100 mg Enoxaparin Sodium (Enoxaparin Inj 40 Mg/0.4 Ml Syr) 40 mg SQ QAM FABIO Stop: 07/27/24 08:59 Last Admin: 06/28/24 10:43 Dose: 40 mg Finasteride (Finasteride 5 Mg Tab) 5 mg PO QAM FABIO Stop: 07/27/24 08:59 Last Admin: 06/28/24 08:54 Dose: 5 mg Hydroxychloroquine Sulfate (Hydroxychloroquine Sulfate 200 Mg Tab) 400 mg PO DAILY FABIO Stop: 07/27/24 08:59 Last Admin: 06/28/24 08:55 Dose: 400 mg Piperacillin Sod/Tazobactam Sod (Zosyn) 4.5 gm in 100 mls @ 25 mls/hr IV Q8H [facility]; Protocol Stop: 07/04/24 00:00 Last Infusion: 06/28/24 13:02 Dose: Infused Ketorolac Tromethamine (Ketorolac Tromethamine 15 Mg/Ml Vial) 15 mg IV Q6H PRN PRN Reason: Pain Stop: 07/01/24 19:51 Last Admin: 06/28/24 11:27 Dose: 15 mg Oxycodone HCl (Oxycodone Hcl Ir 5 Mg Tab (Immediate Release)) 5 - 10 mg PO QID PRN PRN Reason: Pain Stop: 07/10/24 19:51 Last Admin: 06/28/24 14:08 Dose: 10 mg Propranolol HCl (Propranolol Hcl La 80 Mg Capcr) 80 mg PO [facility] Stop: 07/27/24 08:59 Last Admin: 06/28/24 08:55 Dose: 80 mg Tamsulosin HCl (Tamsulosin Hcl 0.4 Mg Cap) 0.4 mg PO [facility] Stop: 07/27/24 08:59 Last Admin: 06/28/24 08:56 Dose: 0.4 mg
[2024-06-29 08:46] LABS: Basophils # (auto) 0.04 K/uL (0.00-0.20); Basophils % (auto) 0.6 %; Eosinophils # (auto) 0.29 K/uL (0.00-0.50); Eosinophils % (auto) 4.4 %; Hematocrit (blood only) 36.4 % (42.0-52.0); Hemoglobin 12.2 g/dl (14.0-18.0); Immature Granulocytes # (auto) 0.02 K/uL (0.01-0.20); Immature Granulocytes % (auto) 0.3 %; Lymphocytes # (auto) 0.99 K/uL (1.20-3.40); Lymphocytes % (auto) 15.1 %; Mean Corpuscular Hgb Conc 33.5 g/dL (32.0-36.0); Mean Corpuscular Volume 86.5 fL (80.0-100.0); Mean Platelet Volume 10.2 fL (9.4-12.4); Monocytes # (auto) 0.61 K/uL (0.11-0.59); Monocytes % (auto) 9.3 %; Neutrophils % (auto) 70.3 %; Platelet Count 255 K/uL (130-400); RDW Coefficient of Variation 12.4 % (11.5-14.5); RDW Standard Deviation 39.3 fL (36.4-46.3); Red Blood Count 4.21 M/uL (4.70-6.10); White Blood Count 6.55 K/ul (4.8-10.8)
[2024-06-29 08:57] LABS: BUN Creatinine Ratio 14.8 (10-20); Calcium 8.8 mg/dl (8.6-10.3); Creatinine Clr Calc Pharmacy 91.4 ml/min; Potassium 4.1 mmol/L (3.5-5.1)
--- NOTE | 2024-06-29 09:48 | Urology Progress Note ---
Date of Service June 29, 2024 Assessment & Plan (1) Abscess of scrotum: (2) Cellulitis of scrotum: (3) Urinary retention: Plan: 63-year-old male with history of BPH and urinary retention admitted for cellulitis and abscess of scrotum. He is POD #1 status post bedside I&D of scrotal abscess with Dr. Tapia Afebrile, labs reviewedcreatinine 1.15, no leukocytosis Blood cultures with no growth x 48 hours Culture of scrotum prelim w/ gram-negative bacilli Continue with antibiotics and narrow per sensitivities when available Wound care nurse consulted, packing exchange planned today Continue with daily packing exchanges and wound care Continue antibiotics, pain control and medical management per hospital medicine Continue with Fish catheter for urinary retention Patient ultimately can follow-up with his established urologist Dr. Jayden Sen will follow peripherally, please contact our service with any additional questions or concerns Admission and Anticipated Discharge Date Admission Date: June 26, 2024 Subjective Patient seen and examined at bedside this morning. He is ambulating from the bathroom upon my arrival. He reports drainage from his scrotum after ambulating. Reports some scrotal discomfort. Fish catheter intact. Denies fever or chills. No nausea or vomiting. He follows with urologist, Dr. Jayden Sen, outpatient. He reports he is scheduled for a TURP for bladder outlet obstruction in a few weeks. Review of Systems Constitutional: as per Subjective / HPI Genitourinary: + as per Subjective / HPI Physical Exam Constitutional: + obese; no acute distress Respiratory: normal respiratory effort; no respiratory distress and no labored breathing Gastrointestinal (Abdomen): Inspection/Auscultation: abdomen normal to inspection Musculoskeletal: Head/Neck/Chest: normocephalic Neurologic: moves all extremities and awake Psychiatric: Orientation: alert and oriented x 3 Genitourinary: Moderate scrotal swelling. Wound packing is intact and appears bloody with some bloody drainage. Added 2 ABDs over top. Fish patent and draining yellow urine. Results & Data Vital Signs (Past 12 Hours) Vital Signs Temp Pulse Resp BP Pulse Ox Pulse Ox O2 Del Method 06/29/24 07:20 37.2 C 63 18 151/86 H 98 Room Air 06/29/24 02:00 98 O2 Del Method 06/29/24 07:20 06/29/24 02:00 Room Air PG Care Time/CCT Total # of Minutes Spent Total Time Spent with Patient: Total time spent is greater than 50% in coordination of care (as documented) at patient's floor/unit and/or counseling patient: Coding Level of Care Code 58394 SUB INP/OBS CARE 1/25MIN Diagnoses Abscess of scrotum N49.2 Cellulitis of scrotum N49.2 Urinary retention R33.9
--- NOTE | 2024-06-29 13:02 | Hospitalist Progress Note ---
Date of Service June 29, 2024 Assessment & Plan (1) Abscess of scrotum: (2) BPH (benign prostatic hyperplasia): (3) Essential tremor: Plan Patient presenting with scrotal abscess status post bedside incision and drainage yesterday by urology Continue wound packing and wound care will need daily dressing changes and outpatient wound care Continue IV antibiotics, Zosyn another 24 hours possibly be able to transition to oral antibiotics within the next 24 to 48 hours Follow wound cultures Scrotal support Maintain Fish catheter anticipate patient will go home with catheter while wound continues to heal in the setting of BPH Oral pain medication Admission and Anticipated Discharge Date Admission Date: June 26, 2024 Subjective Patient reports pain is controlled. Physical Exam Physical Exam: Constitutional: Alert, nontoxic, obese Lungs: Clear to auscultation, decreased, no wheezes rales or rhonchi CV: S1-S2, regular Abdomen: Soft, nontender, nondistended Extremities: No significant edema Genitalia: Scrotum significantly edematous, incision on right hemiscrotum with packing. Serosanguineous drainage. Erythema, tenderness to palpation Results & Data Results & Data Vital Signs (Past 12 Hours) Vital Signs Temp Pulse Resp BP Pulse Ox Pulse Ox O2 Del Method 06/29/24 07:20 37.2 C 63 18 151/86 H 98 Room Air 06/29/24 02:00 98 O2 Del Method 06/29/24 07:20 06/29/24 02:00 Room Air Diagnostic Findings Reviewed imaging, laboratory and diagnostic studies. Pertinent findings as below. WBCs 6.5 Wound culture growing gram-negative bacteria, further identification and sensitivities pending
[2024-06-29 14:03] VITALS: RESP 16
[2024-06-29] MEDS: IBUPROFEN 600 MG TAB PO PRN (20:01)
[2024-06-30 07:45] VITALS: BP 148/86; PULSE 65; TEMP 97.5; O2SAT 96
--- NOTE | 2024-06-30 12:32 | Discharge Summary ---
Discharge Summary Date of Service June 30, 2024 Principal Dx & Hospital Course #1 = Principal Diagnosis (1) Abscess of scrotum: (2) BPH (benign prostatic hyperplasia): (3) Essential tremor: (4) Discoid lupus erythematosus: Plan Patient presents to the emergency room with scrotal swelling and pain. Diagnosed with a scrotal abscess. Patient was admitted to the hospital. Placed on broad-spectrum IV antibiotics. Urology consultation was obtained. Patient was evaluated by urology and eventually a bedside incision and drainage was performed. The wound was packed with gauze and patient was continued on oral antibiotics. Wound culture grew out Klebsiella that was pansensitive. With IV antibiotics and I&D, the scrotal swelling, redness, pain significantly improved. Wound care was consulted. They assisted the patient with wound care instructions and and coordinated follow-up with wound care clinic and instructions on patient taking care of his wound at home. Patient had a Fish catheter placed he follows regularly with urology has significant issues with BPH. Due to the significant scrotal swelling Fish catheter will be maintained and patient will be sent home with a Fish catheter. He will follow-up with his outpatient neurologist. On the day of discharge swelling and tenderness of the scrotum has significantly improved. Could be transition to oral antibiotics based on sensitivities. Will continue his outpatient wound care and follow-up with his PCP and neurologist. Notes For Next Care Provider Fish to be removed as determined by urology Continue with wound care Medication Changes From Visit Augmentin added for treatment of infection and cellulitis and abscess of scrotum Oxycodone for pain control Admission HPI Per Admitting Provider Patient is 63-year-old male with PMH discoid lupus, BPH, recurrent UTI presented to ER with c/o right scrotal swelling x 3-4 days. States right scrotal pain and edema worsened so came to ER today. Per outpatient chart review patient follows with Dr. Sen, urology. On 06/15/[address] Sen. History urinary retention after procedure and had catheter placed 06/15/24 in [facility]. Reports was on Keflex and last day is tomorrow. He denies any improvement. He herring s been applying ice to area without much relief. Denies fever/chills, diaphoresis, N/V/D/C, HERRING, dizziness, CP, SOB, cough, sore throat, rhinorrhea, abdominal pain, flank pain, back pain, paresthesias, weakness, extremity weakness, extremity edema, rashes, hematuria. Admission Exam Per Admitting Provider See H&P Discharge Exam Constitutional: Alert, obese HEENT: Mucous membranes moist. Lungs: Clear to auscultation, decreased, no wheezes rales or rhonchi CV: S1-S2, regular Abdomen: Soft, nontender, nondistended Genitalia: Fish catheter in place, incisional wound on right hemiscrotum, serosanguineous drainage noted on dressing, erythema, edema of entire scrotum and penis significantly improved Extremities: No significant edema Neuro: No focal deficits Psych: Cooperative, normal mood Updated Medication List Medication Instructions Recorded Confirmed Type finasteride 5 mg tablet (Proscar) 5 mg PO QAM 08/09/18 06/26/24 History tamsulosin 0.4 mg capsule (Flomax) 0.4 mg PO DAILY #7 caps 06/16/22 06/26/24 Rx Aries Hose #1 ea 07/05/22 05/21/24 Rx hydroxychloroquine 200 mg tablet 400 mg (2 x 200 mg) PO DAILY #60 11/25/23 06/26/24 Rx (Plaquenil) tabs propranolol 80 mg capsule,24 80 mg PO DAILY #30 caps 05/18/24 06/26/24 Rx hr,extended release cephalexin 500 mg capsule 500 mg PO DIRECTED 06/26/24 06/26/24 History cetirizine 10 mg tablet 10 mg PO DAILY PRN ALLERGIES 06/26/24 06/26/24 History naproxen 500 mg tablet 500 mg PO BID PRN Pain (Scale 06/26/24 06/26/24 History Score 1-3) amoxicillin 875 mg-potassium 1 tab PO Q12H 10 days #20 tabs 06/30/24 Rx clavulanate 125 mg tablet oxycodone 10 mg tablet 10 mg PO Q8H PRN pain #10 tabs 06/30/24 Rx Hospital Stay Data Consultations 06/26/24 18:39 Consult Urology Routine 06/26/24 19:30 ED Decision to Admit Stat Diagnostic Imagining Performed 06/26/24 15:52 US Testicles [US scrotum/testicle] Stat 06/26/24 17:50 CT pelvis w/IV con only Urgent [facility] Wound culture growing Klebsiella, pansensitive Blood cultures no growth to date WBC 6.5, hemoglobin 12.2 Electrolytes all within normal range I refer to imaging reports for details Pending Results Patient Have Any Pending Studies at Discharge: No Discharge Instructions Given to Patient (Per Discharging Provider) Recommend wearing scrotal support when ambulating Continue with Fish care Wound care as instructed by wound care team Home Health Attestation I certify that this patient is under my care and that I, or a physicians nursing home assistant working with me, had a face to-face encounter that meets the home health [id number] encounter requirements with this patient. The encounter with the patient was in whole, or in part, for the following medical condition, which is the primary reason for home health care (list medical condition): I certify that, based on my findings, the following services are medically necessary home health services: My clinical findings support the need for the above services because: Further, I certify that my clinical findings support that this patient is homebound (i.e. absences from home require considerable and taxing effort and are for medical reasons or advent services or infrequently or of short duration when for other reasons) because: Certification for Home Health Services: Based on the above findings, I certify that this patient is confined to the home and needs intermittent alf care, physical therapy and/or speech therapy or continues to need occupational therapy. The patient is under my care, and I have initiated the establishment of the plan of care. This patient will be followed by a physician who will periodically review the plan of care. Total Time Total Time Spent Total Time Spent (In Minutes): 40
== END 2024-06-30 15:00 | disposition home health service (06) | DRG 718 ==
LOC: ED 13:36 → EDINP 21:20 → SUATTDRO 21:20 → INTOOBSV 21:20 → 2S 06-27 04:39 → 3E 06-28 11:23